=== PATIENT | male | born 1965 | race Caucasian/White ===

== ENCOUNTER 2024-11-18 16:20 | Inpatient (IN) | payer OTHER ==
[~2024-11-18] VITALS: Ht 165.1 cm; Wt 86.7 kg
[2024-11-18 17:46] LABS: BASOPHILS ABSOLUTE AUTO 0.03 K/mm3 (0.00-0.23); BASOPHILS PERCENT AUTO 0 % (0-2); EOSINOPHILS ABSOLUTE AUTO 0.09 K/mm3 (0.00-0.68); EOSINOPHILS PERCENT AUTO 1 % (0-6); Hematocrit 23.4 % (37.0-53.0); Hemoglobin 7.2 g/dL (13.5-17.5); IMMATURE GRAN ABSOLUTE AUTO 0.57 K/mm3 (0.00-0.10); IMMATURE GRAN PERCENT AUTO 4 % (0-1); LYMPHOCYTES ABSOLUTE AUTO 1.79 K/mm3 (0.84-5.20); LYMPHOCYTES PERCENT AUTO 14 % (21-46); MONOCYTES ABSOLUTE AUTO 0.64 K/mm3 (0.16-1.47); MONOCYTES PERCENT AUTO 5 % (4-13); Mean Corpuscular HGB Conc 30.8 g/dL (31.5-36.5); Mean Corpuscular Volume 83 fL (80-100); NEUTROPHILS ABSOLUTE AUTO 9.98 K/mm3 (1.96-9.15); NEUTROPHILS PERCENT AUTO 76 % (41-73); NRBC ABSOLUTE 0.00 K/mm3 (0.00-0.02); NRBC Auto 0.0 /100 WBC (0.0-0.2); Platelet Count 514 K/mm3 (150-400); RDW Coefficient Variation 15.8 % (11.7-14.2); RDW Standard Deviation 48.0 fL (35.1-46.3)
[2024-11-18] MEDS ORDERED: NS 1,000 ML IV SCH (17:50)
[2024-11-18 18:03] LABS: Source, Urine Clean Catch
[2024-11-18 18:07] LABS: Bilirubin, Urine Neg (Neg); Glucose Qualitative, Urine Neg (Neg); Ketones, Urine Neg (Neg); Leukocyte Esterase, Urine 3+ (Neg); Protein, Urine 2+ (Neg); Specific Gravity, Urine 1.010 (1.003-1.022); Urobilinogen, Urine NORM (Normal)
[2024-11-18 18:09] LABS: Color, Urine Yellow (P-Yellow)
[2024-11-18 18:13] LABS: White Blood Cells, Urine TNTC /hpf (0-5)
[2024-11-18 18:21] LABS: Magnesium, Blood 3.1 mg/dL (1.6-2.4)
[2024-11-18 18:28] LABS: Alanine Aminotransfer (ALT/SGP 54 U/L (12-78); Albumin, Blood 1.7 g/dL (3.4-5.0); Albumin/Globulin Ratio 0.2 (0.8-1.8); Anion Gap 13 mmol/L (3-11); Aspartate Aminotrans (AST/SGOT 60 U/L (12-37); Bilirubin, Total 0.2 mg/dL (0.1-1.0); Blood Urea Nitrogen 63 mg/dL (8-24); CO2, Blood 22 mmol/L (21-32); Calcium, Blood 9.2 mg/dL (8.5-10.1); Chloride, Blood 105 mmol/L (98-108); Creatinine, Blood 3.88 mg/dL (0.60-1.20); Globulin, Blood 6.8 g/dL (2.2-4.0); Glucose, Blood 142 mg/dL (70-99); Potassium, Blood 4.0 mmol/L (3.5-5.5); Sodium, Blood 136 mmol/L (136-145); Total Protein, Blood 8.5 g/dL (6.4-8.2)
[2024-11-18 18:41] LABS: Acetaminophen, Random <2.0 ug/mL (10.0-30.0)
[2024-11-18 18:50] LABS: Ethanol (Alcohol), Blood, Med 4 mg/dL; Salicylate <1.7 mg/dL (2.8-20.0)
[2024-11-18] MEDS ORDERED: CefTRIAXone Sodium 1,000 MG in NS 100 ML IV ONE (19:15)
[2024-11-18] MEDS ORDERED: Ondansetron HCl 2 MG / ML 2ML Vial IV PRN ×2 (20:35→22:25)
[2024-11-18 20:57] LABS: U Amphetamine Screen Not Detected; U Barbituate Screen Not Detected; U Benzodiazapine Screen Not Detected; U Buprenorphine Screen Not Detected; U Cannabinoids Screen Not Detected; U Cocaine Screen Not Detected; U Methadone Screen Not Detected; U Methamphetamine Screen Not Detected; U Opiates Screen Not Detected; U Oxycodone Screen Not Detected; U Phencyclidine Screen Not Detected
[2024-11-18] MEDS ORDERED: Lactobacil 2-S.Thermo-Bifido 1 1 Cap PO SCH (21:00)
[2024-11-18 21:53] LABS: Ferritin, Serum 1483 ng/mL (26-388); Thyroid Stimulating Hormone 1.490 uIU/mL (0.360-4.800); Total Iron Binding Capacity 171 ug/dL (250-450)
[2024-11-18] MEDS ORDERED: FentaNYL Citrate 50 MCG/ML 2 ML Injection ONE (21:58)
[2024-11-18] MEDS ORDERED: Dexamethasone Sod Phos 10 MG/ML 1ML VIAL ONE (22:10)
[2024-11-18] MEDS ORDERED: Rocuronium Bromide 10 MG/ML 5ML Injection IV ONE (22:10)
[2024-11-18] MEDS ORDERED: FentaNYL Citrate 50 MCG/ML 2 ML Injection IV PRN (22:20)
[2024-11-18] MEDS ORDERED: Sugammadex Sodium 200 MG/2ML SDV (100 MG/ML) ONE (22:23)
[2024-11-18] MEDS ORDERED: Ondansetron HCl 2 MG / ML 2ML Vial ONE (22:23)
[2024-11-18] MEDS ORDERED: HYDROmorphone HCl/Pf 1MG SYR IV PRN (22:25)
[2024-11-18 23:15] VITALS: BP 169/98
[2024-11-18 23:20] VITALS: BP 158/100
[2024-11-18 23:25] VITALS: BP 149/102
[2024-11-18 23:30] VITALS: BP 151/96
[2024-11-18 23:45] VITALS: BP 147/95
[2024-11-19] VITALS (9 sets, daily range): BP systolic 127–154; BP diastolic 76–95
[2024-11-19 00:42] LABS: BASOPHILS ABSOLUTE AUTO 0.06 K/mm3 (0.00-0.23); BASOPHILS PERCENT AUTO 0 % (0-2); EOSINOPHILS ABSOLUTE AUTO 0.07 K/mm3 (0.00-0.68); EOSINOPHILS PERCENT AUTO 1 % (0-6); Hematocrit 24.1 % (37.0-53.0); Hemoglobin 7.1 g/dL (13.5-17.5); IMMATURE GRAN ABSOLUTE AUTO 0.70 K/mm3 (0.00-0.10); IMMATURE GRAN PERCENT AUTO 5 % (0-1); LYMPHOCYTES ABSOLUTE AUTO 0.99 K/mm3 (0.84-5.20); LYMPHOCYTES PERCENT AUTO 6 % (21-46); MONOCYTES ABSOLUTE AUTO 0.35 K/mm3 (0.16-1.47); MONOCYTES PERCENT AUTO 2 % (4-13); Mean Corpuscular HGB Conc 29.5 g/dL (31.5-36.5); NEUTROPHILS ABSOLUTE AUTO 13.21 K/mm3 (1.96-9.15); NEUTROPHILS PERCENT AUTO 86 % (41-73); NRBC ABSOLUTE 0.00 K/mm3 (0.00-0.02); NRBC Auto 0.0 /100 WBC (0.0-0.2); Platelet Count 465 K/mm3 (150-400); RDW Coefficient Variation 16.0 % (11.7-14.2); RDW Standard Deviation 51.5 fL (35.1-46.3)
[2024-11-19 00:43] LABS: Mean Corpuscular Volume 88 fL (80-100)
[2024-11-19 00:58] LABS: Prothrombin Time Results 13.9 Sec (9.7-11.5)
[2024-11-19 01:05] LABS: Alanine Aminotransfer (ALT/SGP 58.0 U/L (12-78); Albumin, Blood 1.5 g/dL (3.4-5.0); Albumin/Globulin Ratio 0.2 (0.8-1.8); Anion Gap 15.0 mmol/L (3-11); Aspartate Aminotrans (AST/SGOT 70.0 U/L (12-37); Bilirubin, Total 0.3 mg/dL (0.1-1.0); Blood Urea Nitrogen 62.0 mg/dL (8-24); CO2, Blood 19.0 mmol/L (21-32); Calcium, Blood 8.4 mg/dL (8.5-10.1); Chloride, Blood 109.0 mmol/L (98-108); Creatinine, Blood 3.84 mg/dL (0.60-1.20); Globulin, Blood 6.4 g/dL (2.2-4.0); Glucose, Blood 119.0 mg/dL (70-99); Magnesium, Blood 2.8 mg/dL (1.6-2.4); Potassium, Blood 4.6 mmol/L (3.5-5.5); Sodium, Blood 138.0 mmol/L (136-145); Total Protein, Blood 7.9 g/dL (6.4-8.2)
[2024-11-19] MEDS ORDERED: MULVITA PO (01:10)
[2024-11-19] MEDS ORDERED: ASCORBIC ACID500 MG (01:11)
--- NOTE | 2024-11-19 02:32 | NUR ---
RN NOTIFICATION TO CONSULT TO DR RUKHSANA WORTHY PLACED CALL TO IR ANSWERING SERVICE AT [phone] FOR IR INTERVENTION FOR BILATERAL PERCUTANEOUS NEPH TUBES IN AM. ANSWERING SERVICE RECEIVED MESSAGE.
--- NOTE | 2024-11-19 07:35 | NUR ---
END OF SHIFT REPORT: PT ADMITTED FROM CYSTOSCOPY TO UNIT. IVF STARTED AT 150 CC HR, BASKETBALL COACH PLACED AND PT ADMISSION COMPLETED. PLAN OF CARE DISCUSSED TO CONTINUE NPO STATUS AND AN IR CONSULT CALLED TO ANSWERING SERVICE FOR DR RUKHSANA WORTHY TO PLACE BILATERAL NEPH TUBES IN AM. IV ABX TO CONTINUE TO BE GIVEN Q 24 HOURS. PT DENIES PAIN, HAS FREQ URINATIONS AND MALE EXTERNAL CATHETER PLACED SO PT COULD GET REST. VSS. PT ON ROOM AIR AND MAINTAINING SATS. HEART RATE ST TO NSR OVERNIGHT. PLAN OF CARE PENDING BIOSPY RESULTS OF BLADDER SPECIMEN. REPEAT LACTATE 0.7 FROM 2.1 ON ADMISSION.
[2024-11-19 09:03] LABS: Hematocrit 24.4 % (37.0-53.0); Hemoglobin 7.4 g/dL (13.5-17.5); Mean Corpuscular HGB Conc 30.3 g/dL (31.5-36.5); Mean Corpuscular Volume 85 fL (80-100); NRBC ABSOLUTE 0.00 K/mm3 (0.00-0.02); NRBC Auto 0.0 /100 WBC (0.0-0.2); Platelet Count 549 K/mm3 (150-400); RDW Coefficient Variation 15.8 % (11.7-14.2); RDW Standard Deviation 48.6 fL (35.1-46.3)
[2024-11-19 09:19] LABS: Anion Gap 14.0 mmol/L (3-11); Blood Urea Nitrogen 66.0 mg/dL (8-24); CO2, Blood 21.0 mmol/L (21-32); Calcium, Blood 8.7 mg/dL (8.5-10.1); Chloride, Blood 110.0 mmol/L (98-108); Creatinine, Blood 3.89 mg/dL (0.60-1.20); Glucose, Blood 148.0 mg/dL (70-99); Potassium, Blood 4.7 mmol/L (3.5-5.5); Sodium, Blood 140.0 mmol/L (136-145)
[2024-11-19 09:21] LABS: BAND PERCENT MAN 1 % (0-8); BASOPHILS ABSOLUTE MAN 0.00 K/mm3 (0.00-0.23); BASOPHILS PERCENT MAN 0 % (0-2); EOSINOPHILS ABSOLUTE MAN 0.00 K/mm3 (0.00-0.68); EOSINOPHILS PERCENT MAN 0 % (0-6); LYMPHOCYTES ABSOLUTE MAN 1.01 K/mm3 (0.84-5.20); LYMPHOCYTES PERCENT MAN 7 % (21-46); METAMYELOCYTE ABSOLUTE MAN 0.43 K/mm3 (0.00-0.00); METAMYELOCYTE PERCENT MAN 3 % (0-0); MONOCYTES ABSOLUTE MAN 0.14 K/mm3 (0.16-1.47); MONOCYTES PERCENT MAN 1 % (4-13); MYELOCYTE ABSOLUTE MAN 0.29 K/mm3 (0.00-0.00); MYELOCYTE PERCENT MAN 2 % (0-0); NEUTROPHILS ABSOLUTE MAN 12.63 K/mm3 (1.96-9.15); SEG NEUTROPHILS PERCENT MAN 86 % (41-73)
[2024-11-19 16:03] LABS: Anion Gap 14.0 mmol/L (3-11); Blood Urea Nitrogen 62.0 mg/dL (8-24); CO2, Blood 21.0 mmol/L (21-32); Calcium, Blood 8.4 mg/dL (8.5-10.1); Chloride, Blood 105.0 mmol/L (98-108); Creatinine, Blood 3.47 mg/dL (0.60-1.20); Glucose, Blood 162.0 mg/dL (70-99); Potassium, Blood 4.1 mmol/L (3.5-5.5); Sodium, Blood 136.0 mmol/L (136-145)
--- NOTE | 2024-11-19 17:27 | NUR ---
PT SUMMARY: PT A/O X4, ABLE TO MAKE NEEDS KNOWN. PT BP STABLE, HR NSR 80-100s. PT ON ROOM AIR, SATS >95%. PT DENIES SOB. PT ABLE TO VOID USING WHICKING SYSTEM DUE TO FREQUENCY. NO BM TODAY. PT ABLE TO TURN SELF IN BED. PT SBA UP TO CHAIR TODAY. PT LYING IN BED, LOWEST POSITION, CALL WITHIN REACH.
[2024-11-19] MEDS ORDERED: CefTRIAXone Sodium 1,000 MG in NS 100 ML IV SCH (20:00)
[2024-11-20] VITALS (14 sets, daily range): BP systolic 128–154; BP diastolic 81–97
[2024-11-20 04:40] LABS: BASOPHILS ABSOLUTE AUTO 0.03 K/mm3 (0.00-0.23); BASOPHILS PERCENT AUTO 0 % (0-2); EOSINOPHILS ABSOLUTE AUTO 0.02 K/mm3 (0.00-0.68); EOSINOPHILS PERCENT AUTO 0 % (0-6); Hematocrit 22.3 % (37.0-53.0); Hemoglobin 6.8 g/dL (13.5-17.5); IMMATURE GRAN ABSOLUTE AUTO 0.96 K/mm3 (0.00-0.10); IMMATURE GRAN PERCENT AUTO 5 % (0-1); LYMPHOCYTES ABSOLUTE AUTO 1.57 K/mm3 (0.84-5.20); LYMPHOCYTES PERCENT AUTO 9 % (21-46); MONOCYTES ABSOLUTE AUTO 0.59 K/mm3 (0.16-1.47); MONOCYTES PERCENT AUTO 3 % (4-13); Mean Corpuscular HGB Conc 30.5 g/dL (31.5-36.5); Mean Corpuscular Volume 83 fL (80-100); NEUTROPHILS ABSOLUTE AUTO 14.51 K/mm3 (1.96-9.15); NEUTROPHILS PERCENT AUTO 82 % (41-73); NRBC ABSOLUTE 0.00 K/mm3 (0.00-0.02); NRBC Auto 0.0 /100 WBC (0.0-0.2); Platelet Count 480 K/mm3 (150-400); RDW Coefficient Variation 16.0 % (11.7-14.2); RDW Standard Deviation 48.4 fL (35.1-46.3)
[2024-11-20 05:03] LABS: Anion Gap 12.0 mmol/L (3-11); Blood Urea Nitrogen 63.0 mg/dL (8-24); CO2, Blood 22.0 mmol/L (21-32); Calcium, Blood 8.1 mg/dL (8.5-10.1); Chloride, Blood 106.0 mmol/L (98-108); Creatinine, Blood 2.97 mg/dL (0.60-1.20); Glucose, Blood 119.0 mg/dL (70-99); Potassium, Blood 4.3 mmol/L (3.5-5.5); Sodium, Blood 136.0 mmol/L (136-145)
--- NOTE | 2024-11-20 06:57 | NUR ---
SHIFT SUMMARY: PT A&OX4 CALM AND COOPERATIVE. VSS ON 1L NC. BEDREST. RAPID RESPONSE CALLED AT 2220 D/T AFIB RVR 160S-220S AND PT C/O CHEST AND LEFT NECK PAIN 10/23. SEE PREVIOUS NOTES. AMIO BOLUS AND DRIP GIVEN PER DR. PERRY. CONVERTED NSR 90S AT 0200. PT BEGAN HAVING SOFT BPS WITH MAP BELOW 65 AND RESIDENT NOTIFIED. RESIDENT ORDERED TO STOP AMIO DRIP. AMIO DRIP STOPPED AT 0500. CONTINUES TO HAVE SOFT BPS BUT MAP >65. RECEIVING IV ABX. RESIDENT NOTIFIED OF WBC INCREASE AND ORDERED LACTIC LAB. TOLERATING HEART HEALTHY DIET. BED IS LOW AND LOCKED AND CALL LIGHT WITHIN REACH. CONTINUE WITH CURRENT PLAN OF CARE.
[2024-11-20] MEDS ORDERED: NS 500 ML IV SCH (07:45)
[2024-11-20] MEDS ORDERED: Vancomycin (Pharmacy Consult) IV SCH (09:00)
[2024-11-20 12:35] LABS: Hematocrit 26.3 % (37.0-53.0); Hemoglobin 8.1 g/dL (13.5-17.5); Mean Corpuscular HGB Conc 30.8 g/dL (31.5-36.5); Mean Corpuscular Volume 82 fL (80-100); NRBC ABSOLUTE 0.00 K/mm3 (0.00-0.02); NRBC Auto 0.0 /100 WBC (0.0-0.2); Platelet Count 453 K/mm3 (150-400); RDW Coefficient Variation 16.1 % (11.7-14.2); RDW Standard Deviation 48.4 fL (35.1-46.3)
[2024-11-20 12:59] LABS: BAND PERCENT MAN 4 % (0-8); BASOPHILS ABSOLUTE MAN 0.00 K/mm3 (0.00-0.23); BASOPHILS PERCENT MAN 0 % (0-2); EOSINOPHILS ABSOLUTE MAN 0.00 K/mm3 (0.00-0.68); EOSINOPHILS PERCENT MAN 0 % (0-6); LYMPHOCYTES ABSOLUTE MAN 1.52 K/mm3 (0.84-5.20); LYMPHOCYTES PERCENT MAN 10 % (21-46); METAMYELOCYTE ABSOLUTE MAN 0.61 K/mm3 (0.00-0.00); METAMYELOCYTE PERCENT MAN 4 % (0-0); MONOCYTES ABSOLUTE MAN 0.30 K/mm3 (0.16-1.47); MONOCYTES PERCENT MAN 2 % (4-13); MYELOCYTE ABSOLUTE MAN 0.30 K/mm3 (0.00-0.00); MYELOCYTE PERCENT MAN 2 % (0-0); NEUTROPHILS ABSOLUTE MAN 12.52 K/mm3 (1.96-9.15); SEG NEUTROPHILS PERCENT MAN 78 % (41-73)
--- NOTE | 2024-11-20 17:17 | NUR ---
SHIFT SUMMARY: PT A/O X4, ABLE TO MAKE NEEDS KNOWN. PT STRENGTH EQUAL BILATERALLY. PT ON 2L O2 NC, SATS >95%. PT LUNG SOUNDS CLEAR THROUGHOUT. PT DENIES SOB. PT REMAINED NSR 80s THIS SHIFT. PT REPORTS NO CHEST PAIN/PRESSURE. PT ABLE TO VOID USING WHICKING SYSTEM DUE TO URGENCY, NO BM TODAY. PT NPO AT 0000 FOR PROCEDURE 11/21. PT RECIEVED 1 UNIT OF PRBC, HGB >7.0 TODAY. PT LYING IN BED, CALL WITHIN REACH. WILL REPORT TO ONCOMING RN.
[2024-11-21] VITALS (8 sets, daily range): BP systolic 130–159; BP diastolic 83–102
[2024-11-21 04:07] LABS: Hematocrit 24.7 % (37.0-53.0); Hemoglobin 7.6 g/dL (13.5-17.5); Mean Corpuscular HGB Conc 30.8 g/dL (31.5-36.5); Mean Corpuscular Volume 84 fL (80-100); NRBC ABSOLUTE 0.00 K/mm3 (0.00-0.02); NRBC Auto 0.0 /100 WBC (0.0-0.2); Platelet Count 489 K/mm3 (150-400); RDW Coefficient Variation 16.7 % (11.7-14.2); RDW Standard Deviation 51.4 fL (35.1-46.3)
[2024-11-21 04:26] LABS: Alanine Aminotransfer (ALT/SGP 68 U/L (12-78); Albumin, Blood 1.5 g/dL (3.4-5.0); Albumin/Globulin Ratio 0.3 (0.8-1.8); Anion Gap 11 mmol/L (3-11); Aspartate Aminotrans (AST/SGOT 72 U/L (12-37); Bilirubin, Total 0.3 mg/dL (0.1-1.0); Blood Urea Nitrogen 58 mg/dL (8-24); CO2, Blood 23 mmol/L (21-32); Calcium, Blood 8.4 mg/dL (8.5-10.1); Chloride, Blood 112 mmol/L (98-108); Creatinine, Blood 2.79 mg/dL (0.60-1.20); Globulin, Blood 5.4 g/dL (2.2-4.0); Glucose, Blood 96 mg/dL (70-99); Potassium, Blood 4.3 mmol/L (3.5-5.5); Sodium, Blood 142 mmol/L (136-145); Total Protein, Blood 6.9 g/dL (6.4-8.2); Vancomycin, Random 27.6 ug/mL
[2024-11-21 04:54] LABS: BAND PERCENT MAN 4 % (0-8); BASOPHILS ABSOLUTE MAN 0.00 K/mm3 (0.00-0.23); BASOPHILS PERCENT MAN 0 % (0-2); EOSINOPHILS ABSOLUTE MAN 0.00 K/mm3 (0.00-0.68); EOSINOPHILS PERCENT MAN 0 % (0-6); LYMPHOCYTES ABSOLUTE MAN 1.51 K/mm3 (0.84-5.20); LYMPHOCYTES PERCENT MAN 11 % (21-46); METAMYELOCYTE ABSOLUTE MAN 0.13 K/mm3 (0.00-0.00); METAMYELOCYTE PERCENT MAN 1 % (0-0); MONOCYTES ABSOLUTE MAN 0.96 K/mm3 (0.16-1.47); MONOCYTES PERCENT MAN 7 % (4-13); MYELOCYTE ABSOLUTE MAN 0.13 K/mm3 (0.00-0.00); MYELOCYTE PERCENT MAN 1 % (0-0); NEUTROPHILS ABSOLUTE MAN 11.00 K/mm3 (1.96-9.15); SEG NEUTROPHILS PERCENT MAN 76 % (41-73)
[2024-11-21] MEDS ORDERED: Vancomycin (Pharmacy Consult) IV SCH (08:15)
[2024-11-21] MEDS ORDERED: NS 500 ML IV ONE (12:27)
[2024-11-21] MEDS ORDERED: Midazolam HCl 1MG / ML 2ML Vial ONE (13:10)
[2024-11-21] MEDS ORDERED: FentaNYL Citrate 50 MCG/ML 2 ML Injection ONE (13:10)
[2024-11-21] MEDS ORDERED: NS 1,000 ML IV ONE (13:10)
--- NOTE | 2024-11-21 18:40 | NUR ---
SHIFT SUMMARY: A/OX4, FLAT AND WITHDRAWN AFFECT, PLEASANT AND COOPERATIVE WITH CARE, USES CALL LIGHT APPROPRIATELY. TRANSITIONED FROM PUREWICK TO URINAL AT BEDSIDE, BILATERAL NEPHROTUBES PLACED, DRESSINGS C/D/I, LARGE OUTPUT FROM LEFT DRAIN, SEROSANGUINEOUS IN COLOR, ON 11/18 URINE WAS POSITIVE FOR GRAM POSITIVE COCCI IN CLUSTERS, UA COLLECTED THIS SHIFT, NOT RESULTED AT THIS TIME. PT STATES THAT HE IS NOT IN ANY PAIN, DENIES N/V/D. TRANSFERS A SBA W/FWW.
[2024-11-22 00:17] VITALS: BP 152/92
[2024-11-22 03:28] LABS: Hematocrit 26.5 % (37.0-53.0); Hemoglobin 8.0 g/dL (13.5-17.5); Mean Corpuscular HGB Conc 30.2 g/dL (31.5-36.5); Mean Corpuscular Volume 85 fL (80-100); NRBC ABSOLUTE 0.00 K/mm3 (0.00-0.02); NRBC Auto 0.0 /100 WBC (0.0-0.2); Platelet Count 415 K/mm3 (150-400); RDW Coefficient Variation 17.0 % (11.7-14.2); RDW Standard Deviation 51.5 fL (35.1-46.3)
[2024-11-22 03:55] LABS: BAND PERCENT MAN 8 % (0-8); BASOPHILS ABSOLUTE MAN 0.00 K/mm3 (0.00-0.23); BASOPHILS PERCENT MAN 0 % (0-2); EOSINOPHILS ABSOLUTE MAN 0.00 K/mm3 (0.00-0.68); EOSINOPHILS PERCENT MAN 0 % (0-6); LYMPHOCYTES ABSOLUTE MAN 1.43 K/mm3 (0.84-5.20); LYMPHOCYTES PERCENT MAN 10 % (21-46); METAMYELOCYTE ABSOLUTE MAN 0.14 K/mm3 (0.00-0.00); METAMYELOCYTE PERCENT MAN 1 % (0-0); MONOCYTES ABSOLUTE MAN 0.00 K/mm3 (0.16-1.47); MONOCYTES PERCENT MAN 0 % (4-13); MYELOCYTE ABSOLUTE MAN 0.14 K/mm3 (0.00-0.00); MYELOCYTE PERCENT MAN 1 % (0-0); NEUTROPHILS ABSOLUTE MAN 12.64 K/mm3 (1.96-9.15); SEG NEUTROPHILS PERCENT MAN 80 % (41-73)
[2024-11-22 04:00] LABS: Albumin, Blood 1.5 g/dL (3.4-5.0); Anion Gap 11 mmol/L (3-11); Blood Urea Nitrogen 53 mg/dL (8-24); CO2, Blood 23 mmol/L (21-32); Calcium, Blood 8.6 mg/dL (8.5-10.1); Chloride, Blood 115 mmol/L (98-108); Creatinine, Blood 2.70 mg/dL (0.60-1.20); Glucose, Blood 117 mg/dL (70-99); Phosphorus, Blood 5.1 mg/dL (2.5-4.9); Potassium, Blood 4.0 mmol/L (3.5-5.5); Sodium, Blood 145 mmol/L (136-145); Vancomycin, Random 16.9 ug/mL
[2024-11-22 04:20] VITALS: BP 113/82
[2024-11-22 08:01] VITALS: BP 134/90
[2024-11-22 09:19] LABS: Source, Urine Clean Catch
[2024-11-22 09:26] LABS: Bilirubin, Urine Neg (Neg); Glucose Qualitative, Urine Neg (Neg); Ketones, Urine Neg (Neg); Leukocyte Esterase, Urine 3+ (Neg); Protein, Urine 3+ (Neg); Specific Gravity, Urine 1.010 (1.003-1.022); Urobilinogen, Urine NORM (Normal)
[2024-11-22 09:38] LABS: Color, Urine Pale Yellow (P-Yellow)
[2024-11-22 09:40] LABS: White Blood Cells, Urine 25-50 /hpf (0-5)
--- NOTE | 2024-11-22 09:59 | NUR ---
am note this rn assumed care at 0700. vital signs stable. tele sinus tachycardia in the 100s. spo2 >90% on 1l nc. patient is alert and oriented x4. neuro is intact. perrla. patient is able to make needs known and uses call light appropriately. patient denies pain, chest pain/pressure or shortness of breath. patient has bilateral nephrostomy tubes both draining to gravity and yellow output. patient was able to void and small amount of urine. see shift assessment for further detials. md Guevara in to see patient at 0900 and discussed plan of care with patient. Md Osorio in to see patient at 0945 and discussed plan of care and made patient medical status with tele.
[2024-11-22 10:59] VITALS: BP 144/99
[2024-11-22 15:02] VITALS: BP 148/92
--- NOTE | 2024-11-22 17:45 | NUR ---
shift summary patient vital signs remain stable. spo2 >90% on 1l nc. patient has sat in the chair majority of the afternoon and had bed bath and linen change. patient requires motivation to participate in adls, but can do so independtly. patient right nephrostomy tube with no output this shift, but left nephrostomy with output. see intake and output for total of output this shift. no acute changes this shift. plan remains up to date
[2024-11-22 20:15] VITALS: BP 138/96
--- NOTE | 2024-11-22 20:55 | NUR ---
REPORT GIVEN TO CODI HAWKINS ON MEDICAL FLOOR. PT TO BE MOVED TO ROOM 308. ALL BELONGINGS AND PAPERWORK TO ACCOMPANY PATIENT TO NEW ROOM.
[2024-11-22] MEDS ORDERED: Heparin Sodium,Porcine 5,000 UNIT/0.5 ML SDV SC SCH (21:00)
[2024-11-23 00:17] VITALS: BP 140/92
--- NOTE | 2024-11-23 03:18 | NUR ---
SHIFT SUMMARY/TRANSFER NOTE: REPORT RECEIVED FROM LAP HAND TOOL RUTH. PT ARRIVED TO THE MEDICAL FLOOR IN A W/C AND WAS ASSITED BY 1-PERSON TO THE RECLINER. PT BROUGHT ALL HIS BELONINGS WITH HIM. EDUCATED PILLAR MAN LIGHT AND FALL PRECAUTIONS. PT CURRENTLY RESTING IN RECLINER, DECLINES NEED FOR LAYING IN BED FOR THE NIGHT. PT DENIES PAIN AND DISCOMFORT. BILATERAL NEPHROSTOMY TUBES DRAINING W/O COMPLICATIONS. PT IS A/O X4, FLAT AFFECT, COOPERATIVE WITH CARE. PT DENIES PAIN AND DISCOMFORT. NO ACUTE EVENTS DURING THIS SHIFT. RECLINER LOCKED, BED AT THE LOWEST POSITION, CALL LIGHT W/I REACH. CONTINENT/INCONTINENT, URINAL BY THE BEDSIDE. PULLUPS IN PLACE.
[2024-11-23 04:19] VITALS: BP 136/88
[2024-11-23 05:28] LABS: Hematocrit 23.9 % (37.0-53.0); Hemoglobin 7.1 g/dL (13.5-17.5); Mean Corpuscular HGB Conc 29.7 g/dL (31.5-36.5); Mean Corpuscular Volume 84 fL (80-100); NRBC ABSOLUTE 0.00 K/mm3 (0.00-0.02); NRBC Auto 0.0 /100 WBC (0.0-0.2); Platelet Count 366 K/mm3 (150-400); RDW Coefficient Variation 16.6 % (11.7-14.2); RDW Standard Deviation 51.1 fL (35.1-46.3)
[2024-11-23 05:53] LABS: BAND PERCENT MAN 3 % (0-8); BASOPHILS ABSOLUTE MAN 0.00 K/mm3 (0.00-0.23); BASOPHILS PERCENT MAN 0 % (0-2); EOSINOPHILS ABSOLUTE MAN 0.42 K/mm3 (0.00-0.68); EOSINOPHILS PERCENT MAN 3 % (0-6); LYMPHOCYTES ABSOLUTE MAN 2.25 K/mm3 (0.84-5.20); LYMPHOCYTES PERCENT MAN 16 % (21-46); METAMYELOCYTE ABSOLUTE MAN 0.28 K/mm3 (0.00-0.00); METAMYELOCYTE PERCENT MAN 2 % (0-0); MONOCYTES ABSOLUTE MAN 0.56 K/mm3 (0.16-1.47); MONOCYTES PERCENT MAN 4 % (4-13); NEUTROPHILS ABSOLUTE MAN 10.56 K/mm3 (1.96-9.15); SEG NEUTROPHILS PERCENT MAN 72 % (41-73)
[2024-11-23 05:56] LABS: Alanine Aminotransfer (ALT/SGP 110 U/L (12-78); Albumin, Blood 1.4 g/dL (3.4-5.0); Albumin/Globulin Ratio 0.2 (0.8-1.8); Anion Gap 8 mmol/L (3-11); Aspartate Aminotrans (AST/SGOT 130 U/L (12-37); Bilirubin, Total 0.4 mg/dL (0.1-1.0); Blood Urea Nitrogen 40 mg/dL (8-24); CO2, Blood 25 mmol/L (21-32); Calcium, Blood 8.3 mg/dL (8.5-10.1); Chloride, Blood 107 mmol/L (98-108); Creatinine, Blood 2.00 mg/dL (0.60-1.20); Globulin, Blood 5.8 g/dL (2.2-4.0); Glucose, Blood 97 mg/dL (70-99); Potassium, Blood 3.4 mmol/L (3.5-5.5); Sodium, Blood 137 mmol/L (136-145); Total Protein, Blood 7.2 g/dL (6.4-8.2); Vancomycin, Random 18.8 ug/mL
[2024-11-23 07:50] VITALS: BP 136/93
[2024-11-23 10:34] LABS: Hematocrit 25.0 % (37.0-53.0); Hemoglobin 7.6 g/dL (13.5-17.5)
[2024-11-23 16:03] VITALS: BP 129/89
--- NOTE | 2024-11-23 16:45 | NUR ---
CALL FROM FAMILY SISTER, SHYAM MAGAÑA, CALLED TO INQUIRE UPDATES REGARDING PATIENT STATUS. ADVISED NO UPDATES ARE AVAILABLE. SISTER WOULD LIKE UPDATE CALLS TO HER FROM PHYSICIAN/SURGEON/NURSE. WENT TO CHECK WITH PATIENT IF THIS WAS OKAY WITH HIM, HE IS CURRENTLY SLEEPING. MOTHER, RC, IS AT THE BEDSIDE. WILL CONFIRM IF UPDATE CALLS TO SISTER IS OKAY WITH HIM AT WHEN HE IS UP FOR DINNER.
--- NOTE | 2024-11-23 16:58 | NUR ---
SHIFT SUMMARY PATIENT A&OX4, PLEASANT. UP IN CHAIR MOST OF DAY. PATIENT STATED HE HAS A DECREASED APPETITE. PATIENT IS MAKING CLEAR AND LIGHT YELLOW URINE FROM LEFT NEPHROSTOMY, PINKISH COLORED FROM THE LEFT. CONTINENT AND A STAND BY ASSIST WITH FWW. OT CAME TO SEE PATIENT TODAY, HE WAS ABLE TO AMBULATE IN THE [place] WITH OT AND FWW W/O O2 AND STAYED ABOVE 90%. CURRENTLY SLEEPING IN BED WITH BED IN LOWEST POSITION, CALL LIGHT IS WITHIN REACH. HIS MOTHER, RC, IS AT THE BEDSIDE.
[2024-11-23 19:25] VITALS: BP 149/97
--- NOTE | 2024-11-24 03:31 | NUR ---
SHIFT SUMMARY NO ACUTE EVENTS DURING THIS SHIFT. RIGHT NEPHROSTOMY TUBE OUTPUT 300MLS YELLOW IN COLOR, LEFT NEPHROSTOMY OUTPUT 700MLS, PINK IN COLOR. AT HS PT'S MOTHER BY THE BEDSIDE. VSS. PT DENIES PAIN AND DISCOMFORT. PT USING URINAL TO VOID, PULLUPS IN PLACE. FLAT AFFECT, COOPERATIVE WITH CARE. BED AT THE LOWEST POSITION, CALL LIGHT W/I REACH. PT IS A/O X4, NEEDS ENCOURAGMENT WITH REPOSITIONING AND ADL'S.
[2024-11-24 04:09] VITALS: BP 128/82
[2024-11-24 05:35] LABS: Hematocrit 24.9 % (37.0-53.0); Hemoglobin 7.8 g/dL (13.5-17.5); Mean Corpuscular HGB Conc 31.3 g/dL (31.5-36.5); Mean Corpuscular Volume 82 fL (80-100); NRBC ABSOLUTE 0.00 K/mm3 (0.00-0.02); NRBC Auto 0.0 /100 WBC (0.0-0.2); Platelet Count 398 K/mm3 (150-400); RDW Coefficient Variation 16.6 % (11.7-14.2); RDW Standard Deviation 49.1 fL (35.1-46.3)
[2024-11-24 06:06] LABS: Alanine Aminotransfer (ALT/SGP 214 U/L (12-78); Albumin, Blood 1.5 g/dL (3.4-5.0); Albumin/Globulin Ratio 0.3 (0.8-1.8); Anion Gap 10 mmol/L (3-11); Aspartate Aminotrans (AST/SGOT 213 U/L (12-37); Bilirubin, Total 0.4 mg/dL (0.1-1.0); Blood Urea Nitrogen 36 mg/dL (8-24); CO2, Blood 23 mmol/L (21-32); Calcium, Blood 8.2 mg/dL (8.5-10.1); Chloride, Blood 104 mmol/L (98-108); Creatinine, Blood 1.72 mg/dL (0.60-1.20); Globulin, Blood 5.9 g/dL (2.2-4.0); Glucose, Blood 101 mg/dL (70-99); Potassium, Blood 3.1 mmol/L (3.5-5.5); Sodium, Blood 134 mmol/L (136-145); Total Protein, Blood 7.4 g/dL (6.4-8.2); Vancomycin, Random 21.2 ug/mL
[2024-11-24 06:21] LABS: BASOPHILS ABSOLUTE MAN 0.00 K/mm3 (0.00-0.23); BASOPHILS PERCENT MAN 0 % (0-2); EOSINOPHILS ABSOLUTE MAN 0.40 K/mm3 (0.00-0.68); EOSINOPHILS PERCENT MAN 3 % (0-6); LYMPHOCYTES ABSOLUTE MAN 1.89 K/mm3 (0.84-5.20); LYMPHOCYTES PERCENT MAN 14 % (21-46); METAMYELOCYTE ABSOLUTE MAN 0.13 K/mm3 (0.00-0.00); METAMYELOCYTE PERCENT MAN 1 % (0-0); MONOCYTES ABSOLUTE MAN 0.13 K/mm3 (0.16-1.47); MONOCYTES PERCENT MAN 1 % (4-13); MYELOCYTE ABSOLUTE MAN 0.40 K/mm3 (0.00-0.00); MYELOCYTE PERCENT MAN 3 % (0-0); NEUTROPHILS ABSOLUTE MAN 10.41 K/mm3 (1.96-9.15); PLASMA CELL ABSOLUTE MAN 0.13 K/mm3 (0.00-0.00); PLASMA CELLS PERCENT MAN 1 % (0-0); SEG NEUTROPHILS PERCENT MAN 77 % (41-73)
[2024-11-24 07:48] VITALS: BP 129/94
[2024-11-24 15:48] VITALS: BP 142/96
[2024-11-24 16:41] LABS: Vancomycin, Random 15.3 ug/mL
--- NOTE | 2024-11-24 18:45 | NUR ---
END OF SHIFT SUMMARY: A&Ox4. PLEASANT AND COOPERATIVE WITH CARE. CALLS APPROPRIATELY AND IS ABLE TO ADVOCATE NEEDS EFFECTIVELY. VSS. BREATHING EVEN AND UNLABORED c RA. CONTINENT OF BOWEL. BILATERAL NEPH TUBES PATENT AND DRAINING TO GRAVITY. DRESSING C/D/I. TOLERATING REGULAR DIET BUT HAS POOR APPETITE. AMBULATES 1PA c FWW. MEDS WHOLE c FLUIDS. FLAT AFFECT AND SIGHS WHEN ASKED TO PARTICIPATE IN CARE. PLAN TO DC HOME c HOME HEALTH ONCE Bx RESULT. BED IN LOWEST POSITION, CALL LIGHT WITHIN REACH, ALL NEEDS MET. REPORT TO ONCOMING NURSE.
[2024-11-24 19:24] VITALS: BP 146/101
[2024-11-25 04:35] VITALS: BP 143/97
[2024-11-25 05:38] LABS: Hematocrit 25.9 % (37.0-53.0); Hemoglobin 7.9 g/dL (13.5-17.5); Mean Corpuscular HGB Conc 30.5 g/dL (31.5-36.5); Mean Corpuscular Volume 84 fL (80-100); NRBC ABSOLUTE 0.00 K/mm3 (0.00-0.02); NRBC Auto 0.0 /100 WBC (0.0-0.2); Platelet Count 418 K/mm3 (150-400); RDW Coefficient Variation 16.4 % (11.7-14.2); RDW Standard Deviation 49.7 fL (35.1-46.3)
--- NOTE | 2024-11-25 05:49 | NUR ---
Shift Summary Bilateral nephrostomy tubes intact, no s/s of infection. Output from R>L. No c/o of pain. Pt awake for most of the night, up in chair. AOx4, 1 assist w FWW.
[2024-11-25 06:11] LABS: BAND PERCENT MAN 3 % (0-8); BASOPHILS ABSOLUTE MAN 0.24 K/mm3 (0.00-0.23); BASOPHILS PERCENT MAN 2 % (0-2); EOSINOPHILS ABSOLUTE MAN 0.48 K/mm3 (0.00-0.68); EOSINOPHILS PERCENT MAN 4 % (0-6); LYMPHOCYTES ABSOLUTE MAN 1.44 K/mm3 (0.84-5.20); LYMPHOCYTES PERCENT MAN 12 % (21-46); METAMYELOCYTE ABSOLUTE MAN 0.60 K/mm3 (0.00-0.00); METAMYELOCYTE PERCENT MAN 5 % (0-0); MONOCYTES ABSOLUTE MAN 0.24 K/mm3 (0.16-1.47); MONOCYTES PERCENT MAN 2 % (4-13); MYELOCYTE ABSOLUTE MAN 0.36 K/mm3 (0.00-0.00); MYELOCYTE PERCENT MAN 3 % (0-0); NEUTROPHILS ABSOLUTE MAN 8.66 K/mm3 (1.96-9.15); SEG NEUTROPHILS PERCENT MAN 69 % (41-73)
[2024-11-25 06:24] LABS: Alanine Aminotransfer (ALT/SGP 161.0 U/L (12-78); Albumin, Blood 1.5 g/dL (3.4-5.0); Albumin/Globulin Ratio 0.2 (0.8-1.8); Anion Gap 12.0 mmol/L (3-11); Aspartate Aminotrans (AST/SGOT 104.0 U/L (12-37); Bilirubin, Total 0.5 mg/dL (0.1-1.0); Blood Urea Nitrogen 24.0 mg/dL (8-24); CO2, Blood 23.0 mmol/L (21-32); Calcium, Blood 8.5 mg/dL (8.5-10.1); Chloride, Blood 103.0 mmol/L (98-108); Creatinine, Blood 1.27 mg/dL (0.60-1.20); Globulin, Blood 6.1 g/dL (2.2-4.0); Glucose, Blood 94.0 mg/dL (70-99); Potassium, Blood 2.8 mmol/L (3.5-5.5); Sodium, Blood 135.0 mmol/L (136-145); Total Protein, Blood 7.6 g/dL (6.4-8.2)
[2024-11-25] MEDS ORDERED: NS 250 ML IV PRN (06:40)
[2024-11-25 07:21] VITALS: BP 127/81
[2024-11-25 15:13] VITALS: BP 131/92
[2024-11-25 17:51] LABS: Vancomycin, Random 16.2 ug/mL
--- NOTE | 2024-11-25 19:15 | NUR ---
SHIFT SUMMARY- PT REMAINS FAIRLY FLAT AND WITHDRAWN. UROLOGY CAME TO SEE HIM AND TOLD HIM HE HAS SOME FORM OF CANCER AND WILL NEED TO FOLLOW UP WITH ONCOLOGY. PATHOLOGY RESULTS CAME BACK AFTER THAT. CALLED DR BRITT HE IS AWARE AND WILL CONSULT ONCOLOGY TOMORROW. PT IS IN BED, BILATERAL NEPHROSTOMY TUBES ARE DRAINING TO GRAVITY. PINK URINE OUTPUT FROM THE LEFT SIDE, CLEAR YELLOW URINE ON THE RIGHT. DR AWARE OF THE PINK URINE ON THE LEFT. PT IN BED, CALL LIGHT IN REACH, NO S&S OF DISTRESS NOTED. BEDSIDE REPORT COMPLETED WITH NIGHT RN.
[2024-11-25 19:34] VITALS: BP 137/90
[2024-11-26] VITALS (11 sets, daily range): BP systolic 128–156; BP diastolic 81–98
--- NOTE | 2024-11-26 05:39 | NUR ---
PT A&O X4, VS WNL, BILAT NEPHROSTOMY WITH GOOD OUTPUT. CLEAR YELLOW URINE. , DENIES PAIN, ABLE TO UTILIZE CALL SYSTEM. PLAN TO SEE ONCOLOGY THIS DAY.
[2024-11-26 05:48] LABS: Hematocrit 25.7 % (37.0-53.0); Hemoglobin 7.9 g/dL (13.5-17.5); Mean Corpuscular HGB Conc 30.7 g/dL (31.5-36.5); Mean Corpuscular Volume 83 fL (80-100); NRBC ABSOLUTE 0.04 K/mm3 (0.00-0.02); NRBC Auto 0.3 /100 WBC (0.0-0.2); Platelet Count 412 K/mm3 (150-400); RDW Coefficient Variation 16.4 % (11.7-14.2); RDW Standard Deviation 49.1 fL (35.1-46.3)
[2024-11-26 06:09] LABS: Alanine Aminotransfer (ALT/SGP 133.0 U/L (12-78); Albumin, Blood 1.6 g/dL (3.4-5.0); Albumin/Globulin Ratio 0.3 (0.8-1.8); Anion Gap 9.0 mmol/L (3-11); Aspartate Aminotrans (AST/SGOT 99.0 U/L (12-37); Bilirubin, Total 0.3 mg/dL (0.1-1.0); Blood Urea Nitrogen 23.0 mg/dL (8-24); CO2, Blood 24.0 mmol/L (21-32); Calcium, Blood 8.4 mg/dL (8.5-10.1); Chloride, Blood 106.0 mmol/L (98-108); Creatinine, Blood 1.12 mg/dL (0.60-1.20); Globulin, Blood 5.7 g/dL (2.2-4.0); Glucose, Blood 102.0 mg/dL (70-99); Potassium, Blood 3.2 mmol/L (3.5-5.5); Sodium, Blood 136.0 mmol/L (136-145); Total Protein, Blood 7.3 g/dL (6.4-8.2)
[2024-11-26 06:51] LABS: BAND PERCENT MAN 5 % (0-8); BASOPHILS ABSOLUTE MAN 0.11 K/mm3 (0.00-0.23); BASOPHILS PERCENT MAN 1 % (0-2); EOSINOPHILS ABSOLUTE MAN 0.11 K/mm3 (0.00-0.68); EOSINOPHILS PERCENT MAN 1 % (0-6); LYMPHOCYTES ABSOLUTE MAN 0.69 K/mm3 (0.84-5.20); LYMPHOCYTES PERCENT MAN 6 % (21-46); METAMYELOCYTE ABSOLUTE MAN 0.23 K/mm3 (0.00-0.00); METAMYELOCYTE PERCENT MAN 2 % (0-0); MONOCYTES ABSOLUTE MAN 0.58 K/mm3 (0.16-1.47); MONOCYTES PERCENT MAN 5 % (4-13); MYELOCYTE ABSOLUTE MAN 0.23 K/mm3 (0.00-0.00); MYELOCYTE PERCENT MAN 2 % (0-0); NEUTROPHILS ABSOLUTE MAN 9.65 K/mm3 (1.96-9.15); SEG NEUTROPHILS PERCENT MAN 78 % (41-73)
[2024-11-26 13:51] LABS: Vancomycin, Trough 14.6 ug/mL (5.0-10.0)
[2024-11-26 14:46] LABS: Ferritin, Serum 1812.0 ng/mL (26-388); Total Iron Binding Capacity 191.0 ug/dL (250-450)
[2024-11-26 17:03] LABS: Anion Gap 14.0 mmol/L (3-11); Blood Urea Nitrogen 23.0 mg/dL (8-24); CO2, Blood 21.0 mmol/L (21-32); Calcium, Blood 8.3 mg/dL (8.5-10.1); Chloride, Blood 103.0 mmol/L (98-108); Creatinine, Blood 1.11 mg/dL (0.60-1.20); Glucose, Blood 138.0 mg/dL (70-99); Potassium, Blood 3.6 mmol/L (3.5-5.5); Sodium, Blood 134.0 mmol/L (136-145)
--- NOTE | 2024-11-26 18:31 | NUR ---
SHIFT SUMMARY NO ACUTE CHANGES, A/Ox4, ABLE TO MAKE NEEDS KNOWN, FLAT EFFECT. BILATERAL NEPHROSTOMIES PATENT AND DRAINING CLEAR YELLOW URINE. 2 UNITS OF PRBC ORDERED TO BE ADMINISTERED - FIRST UNIT STARTED THIS SHIFT AND PT TOLERATING INFUSION WELL AT 125 ML/HR. PT DENIES PAIN. DOES HAVE DIFFICULTY GETTING COMFORTABLE IN BED DESPITE MULTIPLE ATTEMPTS TO REPOSITION PT. PT CURRENTLY RESTING IN BED WITH BED IN LOWEST POSITION AND CALL LIGHT WIHTIN REACH.
[2024-11-27 03:43] VITALS: BP 127/80
[2024-11-27 05:12] LABS: Hematocrit 31.1 % (37.0-53.0); Hemoglobin 9.9 g/dL (13.5-17.5); Mean Corpuscular HGB Conc 31.8 g/dL (31.5-36.5); Mean Corpuscular Volume 82 fL (80-100); NRBC ABSOLUTE 0.04 K/mm3 (0.00-0.02); NRBC Auto 0.3 /100 WBC (0.0-0.2); Platelet Count 366 K/mm3 (150-400); RDW Coefficient Variation 15.9 % (11.7-14.2); RDW Standard Deviation 47.0 fL (35.1-46.3)
--- NOTE | 2024-11-27 05:17 | NUR ---
SHIFT SUMMARY PATIENT A/O X4 AND ABLE TO MAKE NEEDS KNOWN. NO ACUTE CHANGES THROUGHOUT THE SHIFT. PATIENT RECIEVED 2 UNITS PRBC'S. VITAL SIGNS REMAINED STABLE. NEPHROSTOMY TUBES DRAINING CLEAR YELLOW URINE TO GRAVITY. NO REPORTS OF PAIN, JUST STATES THAT THE BED IS UNCOMFORTABLE AND HES HAVING A HARD TIME FINDING A COMFORTABLE POSITION. BED IN LOWEST POSITION, CALL LIGHT IN REACH.
[2024-11-27 05:32] LABS: BAND PERCENT MAN 10 % (0-8); BASOPHILS ABSOLUTE MAN 0.00 K/mm3 (0.00-0.23); BASOPHILS PERCENT MAN 0 % (0-2); EOSINOPHILS ABSOLUTE MAN 0.00 K/mm3 (0.00-0.68); EOSINOPHILS PERCENT MAN 0 % (0-6); LYMPHOCYTES ABSOLUTE MAN 1.54 K/mm3 (0.84-5.20); LYMPHOCYTES PERCENT MAN 11 % (21-46); METAMYELOCYTE ABSOLUTE MAN 0.56 K/mm3 (0.00-0.00); METAMYELOCYTE PERCENT MAN 4 % (0-0); MONOCYTES ABSOLUTE MAN 0.56 K/mm3 (0.16-1.47); MONOCYTES PERCENT MAN 4 % (4-13); MYELOCYTE ABSOLUTE MAN 0.42 K/mm3 (0.00-0.00); MYELOCYTE PERCENT MAN 3 % (0-0); NEUTROPHILS ABSOLUTE MAN 10.98 K/mm3 (1.96-9.15); SEG NEUTROPHILS PERCENT MAN 68 % (41-73)
[2024-11-27 05:46] LABS: Alanine Aminotransfer (ALT/SGP 100.0 U/L (12-78); Albumin, Blood 1.7 g/dL (3.4-5.0); Albumin/Globulin Ratio 0.3 (0.8-1.8); Anion Gap 11.0 mmol/L (3-11); Aspartate Aminotrans (AST/SGOT 75.0 U/L (12-37); Bilirubin, Total 0.6 mg/dL (0.1-1.0); Blood Urea Nitrogen 22.0 mg/dL (8-24); CO2, Blood 21.0 mmol/L (21-32); Calcium, Blood 8.7 mg/dL (8.5-10.1); Chloride, Blood 105.0 mmol/L (98-108); Creatinine, Blood 1.04 mg/dL (0.60-1.20); Globulin, Blood 5.9 g/dL (2.2-4.0); Glucose, Blood 104.0 mg/dL (70-99); Potassium, Blood 3.4 mmol/L (3.5-5.5); Sodium, Blood 134.0 mmol/L (136-145); Total Protein, Blood 7.6 g/dL (6.4-8.2)
[2024-11-27 07:23] VITALS: BP 136/79
[2024-11-27] MEDS ORDERED: Potassium Chl 20MEQ/Water100ML 100 ML IV STA (07:50)
--- NOTE | 2024-11-27 15:24 | NUR ---
PT'S SISTER, SISTER'S , AND PT MOTHER HAVE CONCERNS REGARDING PT POSSIBLE DISCHARGE TOMORROW. PT LIVES WITH HIS 86-YEAR-OLD MOTHER, THEY AND PT FEEL PT IS TOO WEAK TO GO HOME AND WOULD LIKE SNF PLACEMENT. PT/OT HAS NOT WORKED WITH PT OVER WEEKEND. PER REPORT THIS RN RECIEVED YESTERDAY PT WAS INDEPENDENT WITH FWW IN ROOM. PT REFUSING TO GET OOB FOR THIS RN, PT HAS FLAT EFFECT AND REPORTS JUST WANTING TO LAY IN BED DESPITE RN EDUCATION. THIS RN UPDATED RESIDENT FOLLOWING PT VIA PHONE CALL REGARDING FAMILY CONCERNS AND PT REFUSING AMBULATION.
[2024-11-27 15:35] VITALS: BP 154/98
--- NOTE | 2024-11-27 16:02 | NUR ---
SHIFT SUMMARY NO ACUTE CHANGES, A/Ox4, ABLE TO MAKE NEEDS KNOWN. DOES NOT ENJOY HOSPITAL PROVIDED MEALS - PRIMARILY CONSUMING WATER, JUICE, YOGURT, AND MILK. GOOD URINE OUTPUT FROM BILATERAL NEPHROSTOMIES - CLEAR YELLOW URINE. PT DENIES PAIN. SEE PREVIOUS NOTE BY THIS RN REGARDING PT AND FAMILY CONCERNS RE DISCHARGE PLAN. PT REFUSING AMBULATION CT SCAN TECHNOLOGIST ATTEMPT TO GET PT UP INTO CHAIR. REPEAT CT COMPLETED TODAY. VANCO ADMINISTERED PER ORDERS. PT CURRENTLY RESTING IN BED WITH BED IN LOWEST POSITION AND CALL LIGHT IN REACH. APPEARS TO BE IN NO DISTRESS, PT MOTHER AT BEDSIDE.
[2024-11-27 19:26] VITALS: BP 158/88
--- NOTE | 2024-11-28 04:47 | NUR ---
SHIFT SUMMARY A/O X4- PATIENT RESTING IN BED MOST OF THE SHIFT. ENCOURAGED PATIENT TO CHANGE POSITIONS OR GET INTO THE RECLINER. PT DECLINED AMBULATING BUT GOT TO SIDE OF BED AND CHANGED ATTENDS AND LINENS WERE CHANGED. THIS RN CHANGED NEPHROSTOMY DRESSINGS THE DRESSINGS WERE LIFTING, SLIGHT REDNESS SURROUNDING INSERTION SITE. NO SWELLING OR DRAINAGE NOTED FROM INSERTION SITES. NEPHROSTOMY TUBES DRAINING CLEAR YELLOW URINE TO GRAVITY WITH GOOD OUTPUT. NO PAIN REPORTED THROUGHOUT SHIFT. VITAL SIGNS REMAINED STABLE. BED IN LOWEST POSITION, CALL LIGHT IN REACH.
[2024-11-28 05:09] LABS: Hematocrit 31.9 % (37.0-53.0); Hemoglobin 10.3 g/dL (13.5-17.5); Mean Corpuscular HGB Conc 32.3 g/dL (31.5-36.5); Mean Corpuscular Volume 83 fL (80-100); NRBC ABSOLUTE 0.03 K/mm3 (0.00-0.02); NRBC Auto 0.2 /100 WBC (0.0-0.2); Platelet Count 322 K/mm3 (150-400); RDW Coefficient Variation 16.5 % (11.7-14.2); RDW Standard Deviation 49.0 fL (35.1-46.3)
[2024-11-28 05:17] VITALS: BP 134/85
[2024-11-28 05:37] LABS: Alanine Aminotransfer (ALT/SGP 89.0 U/L (12-78); Albumin, Blood 1.7 g/dL (3.4-5.0); Albumin/Globulin Ratio 0.3 (0.8-1.8); Anion Gap 13.0 mmol/L (3-11); Aspartate Aminotrans (AST/SGOT 75.0 U/L (12-37); Bilirubin, Total 0.6 mg/dL (0.1-1.0); Blood Urea Nitrogen 20.0 mg/dL (8-24); CO2, Blood 20.0 mmol/L (21-32); Calcium, Blood 8.7 mg/dL (8.5-10.1); Chloride, Blood 104.0 mmol/L (98-108); Creatinine, Blood 1.08 mg/dL (0.60-1.20); Globulin, Blood 6.1 g/dL (2.2-4.0); Glucose, Blood 106.0 mg/dL (70-99); Potassium, Blood 3.7 mmol/L (3.5-5.5); Sodium, Blood 133.0 mmol/L (136-145); Total Protein, Blood 7.8 g/dL (6.4-8.2)
[2024-11-28 05:51] LABS: BAND PERCENT MAN 4 % (0-8); BASOPHILS ABSOLUTE MAN 0.00 K/mm3 (0.00-0.23); BASOPHILS PERCENT MAN 0 % (0-2); EOSINOPHILS ABSOLUTE MAN 0.00 K/mm3 (0.00-0.68); EOSINOPHILS PERCENT MAN 0 % (0-6); LYMPHOCYTES ABSOLUTE MAN 1.38 K/mm3 (0.84-5.20); LYMPHOCYTES PERCENT MAN 10 % (21-46); METAMYELOCYTE ABSOLUTE MAN 0.69 K/mm3 (0.00-0.00); METAMYELOCYTE PERCENT MAN 5 % (0-0); MONOCYTES ABSOLUTE MAN 0.96 K/mm3 (0.16-1.47); MONOCYTES PERCENT MAN 7 % (4-13); MYELOCYTE ABSOLUTE MAN 0.13 K/mm3 (0.00-0.00); MYELOCYTE PERCENT MAN 1 % (0-0); NEUTROPHILS ABSOLUTE MAN 10.66 K/mm3 (1.96-9.15); SEG NEUTROPHILS PERCENT MAN 73 % (41-73)
[2024-11-28] MEDS ORDERED: FentaNYL Citrate 50 MCG/ML 2 ML Injection IV PRN (06:25)
[2024-11-28 08:06] VITALS: BP 130/84
[2024-11-28 14:24] LABS: Vancomycin, Trough 13.5 ug/mL (5.0-10.0)
[2024-11-28] MEDS ORDERED: VISBIOME 112.51 EACH PO (17:47)
--- NOTE | 2024-11-28 18:40 | NUR ---
DISCHARGE SUMMARY PT DISCHARGED HOME WITH HH. BILATERAL PIV REMOVED AND SITE APPEARS WNL. DISCHARGE INSTRUCTIONS REVIEWED WITH PT AND PT FRIEND KIM WHO IS ASSISTING WITH CARE. INSTRUCTED PT ON EMPTYING NEPHROSTOMY BAGS AND DRESSING CHANGES. SUPPLIES PROVIDED FOR DRESSING CHANGES. PT TO FOLLOW UP WITH DR. QUINN AND DR. FRANCO. PT ABLE TO STAND AND AMBULATE INDEPENDENTLY WITH FWW TO WHEELCHAIR. TAKEN DOWN BY FAMILY FRIEND PER THEIR REQUEST.
== END 2024-11-28 18:34 | disposition home health service (06) | DRG 853 ==
LOC: ER 16:20 → MEDS 20:33 → PCU 20:33 → MEDS 11-22 21:18
PROVIDERS: Emergency Medicine; Internal Medicine; Internal Medicine Hematology & Oncology; Nurse Practitioner Acute Care; Student in an Organized Health Care Education/Training Program; ADMIT Student in an Organized Health Care Education/Training Program
PROC: 0TBB8ZX Excision of Bladder, Via Natural or Artificial Opening Endoscopic, Diagnostic (ICD-10-PCS; 2024-11-18)
PROC: 3E03329 Introduction of Other Anti-infective into Peripheral Vein, Percutaneous Approach (ICD-10-PCS; 2024-11-18)
PROC: 30233N1 Transfusion of Nonautologous Red Blood Cells into Peripheral Vein, Percutaneous Approach (ICD-10-PCS; 2024-11-20)
PROC: 0T9330Z Drainage of Right Kidney Pelvis with Drainage Device, Percutaneous Approach (ICD-10-PCS; principal; 2024-11-21)
PROC: 0T9430Z Drainage of Left Kidney Pelvis with Drainage Device, Percutaneous Approach (ICD-10-PCS; 2024-11-21)
PROC: BT131ZZ Fluoroscopy of Bilateral Kidneys using Low Osmolar Contrast (ICD-10-PCS; 2024-11-21)
DX: A40.8 Other streptococcal sepsis (principal); N17.0 Acute kidney failure with tubular necrosis; N13.6 Pyonephrosis; C78.7 Secondary malignant neoplasm of liver and intrahepatic bile duct; C79.51 Secondary malignant neoplasm of bone; M84.58XA Pathological fracture in neoplastic disease, other specified site, initial encounter for fracture; E87.20 Acidosis, unspecified; C67.1 Malignant neoplasm of dome of bladder; R65.20 Severe sepsis without septic shock; D63.0 Anemia in neoplastic disease; R73.03 Prediabetes; R74.02 Elevation of levels of lactic acid dehydrogenase [LDH]; K76.0 Fatty (change of) liver, not elsewhere classified; D75.839 Thrombocytosis, unspecified
CPT/HCPCS: 36415; 36430; 71260; 74176; 76937; 80048; 80053; 80069; 80202; 80320; 81001; 82140; 82607; 82728; 82746; 82947; 83036; 83540; 83550; 83605; 83690; 83735; 84443; 85014; 85018; 85025; 85060; 85610; 86850; 86900; 86901; 86923; 87040; 87071; 87075; 87086; 87184; 87205; 88305; 88341; 88342; 93005; 93010; 94760; 96365-59; 97161; 97165; 97530; 97535; 99152; 99153; 99284-25; A9270; C1729; C1769; C1894; G0480; J0696; J1100; J1644; J2250; J2405; J2704; J3010; J3373; J3480; J7030; J7040; J7050; J7120; P9016; Q9967

== ENCOUNTER 2024-12-05 10:57 | Inpatient (IN) | payer OTHER ==
[~2024-12-05] VITALS: Ht 165.1 cm; Wt 90.8 kg
[~2024-12-05 10:57] MED LIST: ASCORBIC ACID500 MG; MULVITA PO; VISBIOME 112.51 EACH PO
[2024-12-05 11:56] LABS: Hematocrit 29.9 % (37.0-53.0); Hemoglobin 9.6 g/dL (13.5-17.5); Mean Corpuscular HGB Conc 32.1 g/dL (31.5-36.5); Mean Corpuscular Volume 82 fL (80-100); NRBC ABSOLUTE 0.04 K/mm3 (0.00-0.02); NRBC Auto 0.6 /100 WBC (0.0-0.2); Platelet Count 142 K/mm3 (150-400); RDW Coefficient Variation 17.2 % (11.7-14.2); RDW Standard Deviation 51.0 fL (35.1-46.3)
[2024-12-05] MEDS ORDERED: NS 1,000 ML IV SCH ×3 (12:00→17:00)
[2024-12-05 12:16] LABS: Alanine Aminotransfer (ALT/SGP 62.0 U/L (12-78); Albumin, Blood 1.8 g/dL (3.4-5.0); Albumin/Globulin Ratio 0.3 (0.8-1.8); Anion Gap 13.0 mmol/L (3-11); Aspartate Aminotrans (AST/SGOT 189.0 U/L (12-37); Bilirubin, Total 0.5 mg/dL (0.1-1.0); Blood Urea Nitrogen 60.0 mg/dL (8-24); CO2, Blood 18.0 mmol/L (21-32); Calcium, Blood 9.6 mg/dL (8.5-10.1); Chloride, Blood 106.0 mmol/L (98-108); Creatinine, Blood 1.74 mg/dL (0.60-1.20); Globulin, Blood 5.8 g/dL (2.2-4.0); Glucose, Blood 114.0 mg/dL (70-99); Potassium, Blood 3.7 mmol/L (3.5-5.5); Sodium, Blood 133.0 mmol/L (136-145); Total Protein, Blood 7.6 g/dL (6.4-8.2)
[2024-12-05 12:24] LABS: BAND PERCENT MAN 13 % (0-8); BASOPHILS ABSOLUTE MAN 0.00 K/mm3 (0.00-0.23); BASOPHILS PERCENT MAN 0 % (0-2); EOSINOPHILS ABSOLUTE MAN 0.21 K/mm3 (0.00-0.68); EOSINOPHILS PERCENT MAN 3 % (0-6); LYMPHOCYTES ABSOLUTE MAN 0.99 K/mm3 (0.84-5.20); LYMPHOCYTES PERCENT MAN 14 % (21-46); METAMYELOCYTE ABSOLUTE MAN 0.21 K/mm3 (0.00-0.00); METAMYELOCYTE PERCENT MAN 3 % (0-0); MONOCYTES ABSOLUTE MAN 0.56 K/mm3 (0.16-1.47); MONOCYTES PERCENT MAN 8 % (4-13); MYELOCYTE ABSOLUTE MAN 0.14 K/mm3 (0.00-0.00); MYELOCYTE PERCENT MAN 2 % (0-0); NEUTROPHILS ABSOLUTE MAN 4.97 K/mm3 (1.96-9.15); SEG NEUTROPHILS PERCENT MAN 57 % (41-73)
[2024-12-05] MEDS ORDERED: Ondansetron HCl 2 MG / ML 2ML Vial IV ONE (13:05)
[2024-12-05] MEDS ORDERED: FentaNYL Citrate 50 MCG/ML 2 ML Injection IV ONE (13:05)
[2024-12-05 13:18] LABS: Source, Urine Clean Catch
[2024-12-05 13:28] LABS: Color, Urine Yellow (P-Yellow); Glucose Qualitative, Urine Neg (Neg); Ketones, Urine Neg (Neg); Leukocyte Esterase, Urine 1+ (Neg); Protein, Urine 3+ (Neg); Specific Gravity, Urine 1.015 (1.003-1.022); Urobilinogen, Urine NORM (Normal)
[2024-12-05 13:49] LABS: Bilirubin, Urine 2+ (Neg)
[2024-12-05 13:57] LABS: Red Blood Cells, Urine 0-2 /hpf (0-2)
[2024-12-05] MEDS ORDERED: FLU VACC TS2025-26(6MOS UP)/PF 45 MCG/0.5 ML SYRINGE IM ONE (16:05)
[2024-12-05] MEDS ORDERED: CefTRIAXone Sodium 2,000 MG in NS 100 ML IV SCH (16:30)
--- NOTE | 2024-12-05 18:22 | NUR ---
ARRIVAL TO PCU 7 PT ARRIVED TO PCU 7 AT APPROXIMATELY 1800. PT SLID OVER FROM ER [place] TO HOSPITAL BED BY THREE CLINICAL STAFF MEMBERS. PT A&Ox4, CALLS AND COMMUNICATES NEEDS APPROPRIATELY. ORIENTED TO CALL LIGHT / UNIT. BP STABLE, SINUS 90's, DENIES CP/PRESSURE. SpO2> 92% RA, DENIES SOB.
[2024-12-05 19:48] VITALS: BP 90/66
[2024-12-05] MEDS ORDERED: NS 1,000 ML IV ONE (20:22)
[2024-12-05] MEDS ORDERED: Lactobacil 2-S.Thermo-Bifido 1 1 Cap PO SCH (21:00)
[2024-12-05 23:27] VITALS: BP 104/66
[2024-12-06] VITALS (30 sets, daily range): BP systolic 76–131; BP diastolic 50–99
[2024-12-06 04:52] LABS: Hematocrit 28.3 % (37.0-53.0); Hemoglobin 8.9 g/dL (13.5-17.5); Mean Corpuscular HGB Conc 31.4 g/dL (31.5-36.5); Mean Corpuscular Volume 83 fL (80-100); NRBC ABSOLUTE 0.08 K/mm3 (0.00-0.02); NRBC Auto 1.2 /100 WBC (0.0-0.2); Platelet Count 123 K/mm3 (150-400); RDW Coefficient Variation 17.5 % (11.7-14.2); RDW Standard Deviation 53.1 fL (35.1-46.3)
[2024-12-06 05:07] LABS: Anion Gap 11.0 mmol/L (3-11); Blood Urea Nitrogen 50.0 mg/dL (8-24); CO2, Blood 20.0 mmol/L (21-32); Calcium, Blood 9.1 mg/dL (8.5-10.1); Chloride, Blood 110.0 mmol/L (98-108); Creatinine, Blood 1.74 mg/dL (0.60-1.20); Glucose, Blood 103.0 mg/dL (70-99); Potassium, Blood 4.3 mmol/L (3.5-5.5); Sodium, Blood 137.0 mmol/L (136-145)
[2024-12-06 05:13] LABS: BAND PERCENT MAN 21 % (0-8); BASOPHILS ABSOLUTE MAN 0.00 K/mm3 (0.00-0.23); BASOPHILS PERCENT MAN 0 % (0-2); EOSINOPHILS ABSOLUTE MAN 0.26 K/mm3 (0.00-0.68); EOSINOPHILS PERCENT MAN 4 % (0-6); LYMPHOCYTES ABSOLUTE MAN 0.74 K/mm3 (0.84-5.20); LYMPHOCYTES PERCENT MAN 11 % (21-46); METAMYELOCYTE ABSOLUTE MAN 0.13 K/mm3 (0.00-0.00); METAMYELOCYTE PERCENT MAN 2 % (0-0); MONOCYTES ABSOLUTE MAN 0.20 K/mm3 (0.16-1.47); MONOCYTES PERCENT MAN 3 % (4-13); MYELOCYTE ABSOLUTE MAN 0.06 K/mm3 (0.00-0.00); MYELOCYTE PERCENT MAN 1 % (0-0); NEUTROPHILS ABSOLUTE MAN 5.31 K/mm3 (1.96-9.15); SEG NEUTROPHILS PERCENT MAN 58 % (41-73)
--- NOTE | 2024-12-06 06:22 | NUR ---
NOC SHIFT SUMMARY PT IS ALERT BUT SLEEPY, HE IS EASILY AROUSABLE. PT IS VERY PAINFUL "ALL OVER" HE HAS A RASH T/O HIS BODY UNSURE OF WHERE IT CAME FROM, SAYS IT APPEARED A FEW DAYS AGO. THE RASH IS ITCHY TO HIM. PT HAD DRIED BM ON HIS BACKSIDE WHEN HE ARRIVED. PT WAS CLEANED UP SMALL STAGE 11 PRESSURE INJURY NOTED ON BUTTOCK ONCE HE WAS CLEANED UP (PICTURE IN CHART) MEPELIEX PLACED. PT BP REMAINS SOFT W/ MAP >65. PT HR RATE HAS SLOWLY TRENDED UP (SEE VITALS). PT RR RATE HAS BEEN BETWEEN 25-40 SINCE AFTER MIDNIGHT. L NEP TUBE HAS GOOD OUTPUT, PT STILL MAKES URINE AND HAD TWO INCONTIENT VOIDS. IV FLUIDS INFUSING PER EMAR. BED BATH PROVIDED, LIEN CHANGED. BED IN LOWEST POSTION FOR SAFETY. CALL LIGHT IN REACH.
[2024-12-06] MEDS ORDERED: NS 1,000 ML IV SCH ×2 (07:00→16:00)
[2024-12-06] MEDS ORDERED: Rocuronium Bromide 10 MG/ML 5ML Injection IV ONE (07:51)
[2024-12-06] MEDS ORDERED: Etomidate 2MG / ML 10ML Vial IV ONE (07:51)
[2024-12-06] MEDS ORDERED: Multivitamins 1 Tab PO SCH (09:00)
[2024-12-06] MEDS ORDERED: FentaNYL Citrate 50 MCG/ML 2 ML Injection ONE (09:50)
[2024-12-06] MEDS ORDERED: Midazolam HCl 1MG / ML 2ML Vial ONE (09:50)
[2024-12-06] MEDS ORDERED: NS 1,000 ML IV ONE (09:51)
--- NOTE | 2024-12-06 10:42 | NUR ---
ASSUMPTION OF CARE: PATIENT IS VERY DROWSY, EASILY AROUSABLE, CAN ANSWER MOST QUESTIONS, BUT DISORIENTED TO TIME AND UNSURE IF ORIENTED TO COMPLEX CURRENT SITUTAION. PATIENT DENIES CHEST PAIN/PRESSURE OR SOB DESPITE HAVING RR IN THE MID 20'S WHILE SLEEPING, CURRENLTY ON 3.5L FOR SPO2 >92%. VERY DIM BASES WITH SOME MINOR SHALLOWING TO BREATHING, EDUCATED ON COUGH AND DEEP BREATH, ALREADY AT PROCEDURE, FEBRILE AT 101.2 AT PROCEDURE, MANAGER PART NOTIFED THIS RN, WAS NOT FEBRILE AT AM VITALS, PROVIDER NOTIFIED OF ABOVE, SISTER UPDATED ON SITUATION. PATIENT SYSTOLIC PRESSURES HAVE BEEN IN THE 100'S WITH A MAP >65 FOR THIS RN. NO OUTPUT NOTED ON RIGHT NEPH TUBE WHILE LEFT DRAINING WELL, 275 DUMPED THIS AM WITH ASSESSMENT. PATIENT WITH 2 IV'S R HAND AND R AC PATENT CDI AFTER AC DRESSING CHANGE. NO ACUTE CONCERNS NOT ADDRESSED AT THIS TIME. PLAN OF CARE CONTINUES.
[2024-12-06] MEDS ORDERED: ZINC OXIDE/PETROLATUM, YELLOW 1 APPLIC/71 GM PASTE TOP PRN (15:45)
[2024-12-06] MEDS ORDERED: Meropenem 2,000 MG in NS 250 ML IV SCH (16:00)
[2024-12-06] MEDS ORDERED: Enoxaparin 40 MG/0.4 ML SYR SC SCH (17:00)
[2024-12-06] MEDS ORDERED: Vancomycin (Pharmacy Consult) IV PRN (18:10)
--- NOTE | 2024-12-06 19:24 | NUR ---
EOS: CHANGES FROM ASSUMPTION. PATIENT AT APPROXIMATELY 1500 APPEARED TO BE WORSENING IN CONDITION HE WAS TACHYPNIC EXTREMELY WARM TO THE TOUCH, ON REASSESSMENT OF THE NEW NEPH TUBE, IT WAS LEAKING, STAVE PLANER TENDER ALSO SEEN NOTIFIED IR , CT ABD; PENDING RESULTS. TEMP MAX OF 101.8 ON RECTAL PROBE, IS NOW LESS THAN 100.0. HR WAS AT 120'S. SYSTOLIC BLOOD PRESSURE LOW 90'S DURING THIS NOW HAVE IMPROVED TO UPPER 90'S HR IS BELOW 100 AT TIMES. RR WAS IN THE UPPER 20'S LOW 30'S, NOW RESTING RR 20'S. CBG HAS BEEN >100 HAVE BEEN CHECKING Q6 POOR APPETITE AND POTENTIAL CONCERN. ADDITIONALLY IS NOW RUNNING NS AT 200mL NEW ORDERS FOR VANCO AND MEROPENEM. DENIES CHEST PAIN/PRESSURE OR SOB, DID HAVE POSSIBLE TELE, CHANGES EKG PREFORMED NOTIFIED HOSPITALIST, PATIENT ASYMPTOMATIC, MONITOR. PLAN OF CARE CONTINUES.
[2024-12-06] MEDS ORDERED: Albumin (Human) 25gm/100ml 100 ML IV ONE (23:55)
[2024-12-07] VITALS (126 sets, daily range): BP systolic 67–126; BP diastolic 46–91
[2024-12-07 00:27] LABS: Hematocrit 38.1 % (37.0-53.0); Hemoglobin 10.9 g/dL (13.5-17.5); Mean Corpuscular HGB Conc 28.6 g/dL (31.5-36.5); NRBC ABSOLUTE 0.19 K/mm3 (0.00-0.02); NRBC Auto 3.9 /100 WBC (0.0-0.2); Platelet Count 108 K/mm3 (150-400); RDW Coefficient Variation 18.2 % (11.7-14.2); RDW Standard Deviation 59.8 fL (35.1-46.3)
[2024-12-07 00:35] LABS: Prothrombin Time Results 13.2 Sec (9.7-11.5)
[2024-12-07 00:38] LABS: Alanine Aminotransfer (ALT/SGP 46.0 U/L (12-78); Albumin, Blood 1.4 g/dL (3.4-5.0); Albumin/Globulin Ratio 0.3 (0.8-1.8); Anion Gap 15.0 mmol/L (3-11); Aspartate Aminotrans (AST/SGOT 132.0 U/L (12-37); Bilirubin, Total 0.5 mg/dL (0.1-1.0); Blood Urea Nitrogen 45.0 mg/dL (8-24); CO2, Blood 12.0 mmol/L (21-32); Calcium, Blood 8.6 mg/dL (8.5-10.1); Chloride, Blood 115.0 mmol/L (98-108); Creatinine, Blood 1.86 mg/dL (0.60-1.20); Globulin, Blood 5.1 g/dL (2.2-4.0); Glucose, Blood 75.0 mg/dL (70-99); Magnesium, Blood 1.8 mg/dL (1.6-2.4); Phosphorus, Blood 4.3 mg/dL (2.5-4.9); Potassium, Blood 4.4 mmol/L (3.5-5.5); Sodium, Blood 138.0 mmol/L (136-145); Total Protein, Blood 6.5 g/dL (6.4-8.2)
[2024-12-07 00:52] LABS: Mean Corpuscular Volume 91 fL (80-100)
[2024-12-07] MEDS ORDERED: NS 500 ML IV ONE (01:29)
--- NOTE | 2024-12-07 01:32 | NUR ---
TRANSFER TO ICU NOTE SHORTLY AFTER SHIFT CHANGE, PT'S BLOOD PRESSURES NOTED TO BE TRENDING DOWN WITH INCREASING HR (ST 130-150s), AND INCREASING RECTAL TEMPERATURE. SEE V/S FOR DETAILS. NS INFUSING ORDERED PER EMAR AND PRN TYLENOL GIVEN. TEMPERATURE CONTINUED TO RISE WITH PT ENDORSING FEELING COLD WITH SHAKES NOTED. DR. PERRY NOTIFIED WITH MD TO BEDSIDE TO EVALUATE. ADDITIONAL ORDERS FOR TYLENOL TO BE GIVEN. ICE PACKS ALSO PLACED IN ARMPITS AND GROIN. DR. ETIENNE NOTIFIED WITH MD TO BEDSIDE TO EVALUATE PT. RASH NOTED DURING SHIFT CHANGE INCREASING UP INTO PT'S TORSO WITH BLOOD PRESSURES CONTINUING TO DROP. ORDERS FOR TRANSFER TO ICU WITH INITIATION OF PRESSURES WITH ADDITIONAL ORDERS TO FOLLOW. SEE EMAR FOR ADMINISTRATION DETAILS. PT'S O2 NEEDS NOTED TO HAVE INCREASED WITH PT NEEDING TO BE PLACED ON NRB TO MAINTAIN SPO2 >90%. PT ALSO STARTING TO HAVE SCANT BLOOD MIXED IN WITH THICK LOWE SPUTUM. PT TRANSFERED TO ICU 5 WITH REPORT GIVEN TO WOOD MILLER JEAN PIERRE DE LEÓN. SEE CHARTED V/S FOR DETAILS.
[2024-12-07] MEDS ORDERED: Midazolam HCL 50 MG in NS 40 ML IV PRN (01:35)
[2024-12-07] MEDS ORDERED: NS 250 ML IV ONE (01:35)
[2024-12-07] MEDS ORDERED: NS 1,000 ML IV SCH (01:35)
[2024-12-07 01:43] LABS: BAND PERCENT MAN 30 % (0-8); BASOPHILS ABSOLUTE MAN 0.00 K/mm3 (0.00-0.23); BASOPHILS PERCENT MAN 0 % (0-2); EOSINOPHILS ABSOLUTE MAN 0.00 K/mm3 (0.00-0.68); EOSINOPHILS PERCENT MAN 0 % (0-6); LYMPHOCYTES ABSOLUTE MAN 0.48 K/mm3 (0.84-5.20); LYMPHOCYTES PERCENT MAN 10 % (21-46); METAMYELOCYTE ABSOLUTE MAN 0.14 K/mm3 (0.00-0.00); METAMYELOCYTE PERCENT MAN 3 % (0-0); MONOCYTES ABSOLUTE MAN 0.04 K/mm3 (0.16-1.47); MONOCYTES PERCENT MAN 1 % (4-13); NEUTROPHILS ABSOLUTE MAN 3.66 K/mm3 (1.96-9.15); SEG NEUTROPHILS PERCENT MAN 45 % (41-73)
[2024-12-07 01:44] LABS: MYELOCYTE ABSOLUTE MAN 0.48 K/mm3 (0.00-0.00); MYELOCYTE PERCENT MAN 10 % (0-0); PROMYELOCYTE ABSOLUTE MAN 0.04 K/mm3 (0.00-0.00); PROMYELOCYTE PERCENT MAN 1 % (0-0)
[2024-12-07] MEDS ORDERED: Cetylpyridinium Chloride 1 EA MISC MT SCH (02:20)
[2024-12-07] MEDS ORDERED: Sodium Bicarb 8.4% Inj 150 MEQ in Dextrose 5% 1,000 ML IV SCH (02:30)
[2024-12-07] MEDS ORDERED: Sodium Bicarb 8.4% 1 MEQ/ML 50 ML Vial IV ONE (03:00)
[2024-12-07] MEDS ORDERED: Hydrogen Peroxide 1.5 % Solution MT SCH (04:00)
[2024-12-07 04:08] LABS: Hematocrit 28.1 % (37.0-53.0); Hemoglobin 8.8 g/dL (13.5-17.5); Mean Corpuscular HGB Conc 31.3 g/dL (31.5-36.5); NRBC ABSOLUTE 0.25 K/mm3 (0.00-0.02); NRBC Auto 4.2 /100 WBC (0.0-0.2); Platelet Count 105 K/mm3 (150-400); RDW Coefficient Variation 18.1 % (11.7-14.2); RDW Standard Deviation 54.6 fL (35.1-46.3)
[2024-12-07 04:21] LABS: Mean Corpuscular Volume 84 fL (80-100)
[2024-12-07 04:26] LABS: Alanine Aminotransfer (ALT/SGP 37.0 U/L (12-78); Albumin, Blood 1.7 g/dL (3.4-5.0); Albumin/Globulin Ratio 0.4 (0.8-1.8); Anion Gap 13.0 mmol/L (3-11); Aspartate Aminotrans (AST/SGOT 123.0 U/L (12-37); Bilirubin, Total 0.7 mg/dL (0.1-1.0); Blood Urea Nitrogen 49.0 mg/dL (8-24); CO2, Blood 19.0 mmol/L (21-32); Calcium, Blood 8.1 mg/dL (8.5-10.1); Chloride, Blood 115.0 mmol/L (98-108); Creatinine, Blood 2.44 mg/dL (0.60-1.20); Globulin, Blood 3.9 g/dL (2.2-4.0); Glucose, Blood 112.0 mg/dL (70-99); Potassium, Blood 4.5 mmol/L (3.5-5.5); Sodium, Blood 142.0 mmol/L (136-145); Total Protein, Blood 5.6 g/dL (6.4-8.2)
[2024-12-07] MEDS ORDERED: Vasopressin 20 UNITS in NS 100 ML IV SCH (04:30)
[2024-12-07 05:13] LABS: Bilirubin, Urine Neg (Neg); Color, Urine Red (P-Yellow); Glucose Qualitative, Urine Neg (Neg); Ketones, Urine Neg (Neg); Leukocyte Esterase, Urine 3+ (Neg); Protein, Urine 4+ (Neg); Specific Gravity, Urine 1.010 (1.003-1.022); Urobilinogen, Urine NORM (Normal)
[2024-12-07 05:22] LABS: White Blood Cells, Urine 50-100 /hpf (0-5)
[2024-12-07 05:23] LABS: Red Blood Cells, Urine 50-100 /hpf (0-2)
--- NOTE | 2024-12-07 06:04 | NUR ---
SHIFT SUMMARY PT ARRIVES ON UNIT AT [address] ETIENNE AT BEDSIDE AT 0055. DECISION WAS MADE TO INTUBATE PT. 0106 - 15 ETOMIDATE GIVEN 0107 - 80 ROCURONIUM GIVEN. ALEJANDRO INCREASED TO 40 PER VERBAL INSTRUCTION FROM PHYSICIAN. RT BAGGING PT 0109 - ETT PLACED. 8.0, 27 AT TEETH. PLACEMENT CHECKED WITH BREATH SOUNDS BY KITCHENWHERE MAKER AND THIS NURSE, POSSITIVE BREATH SOUNDS BILATERALY 0112 - OG TUBE PLACED BY KITCHENWHERE MAKER. POSITIVE OSCULTATION OF GI CONTENTS WITH AIR. PT HAS BEEN RESTING IN BED. DIFFICULT TO SEDATE WITHOUT DROP IN BLOOD PRESSURE. PT ABLE TO FOLLOW DIRECTIONS AND SQUEEZE HANDS BUT DOES NOT CALM WHEN THIS NURSE ATTEMPTS TO REORIENT HIM. PTS ALEJANDRO HAS BEEN GRADUALLY INCREASED, PHYSICIAN ORDERED ADDITION MEDICATION TO ASSIST WITH LOW BP. PT IS ON VERSED WELL PROPOFOL AT THIS TIME. CENTRAL LINE WAS ALSO PLACED BY DR ETIENNE. MEDICATIONS CURRENTLY INFUSING THROUGH THAT LINE. WILL CONTINUE TO MONITOR UNTIL REPORT PASSED TO AY SHIFT TEAM.
--- NOTE | 2024-12-07 08:00 | NUR ---
ASSUMPTION OF CARE RECEIVED REPORT FROM [facility] NURSE. PT IS INTUBATED AND SEDATED. PT HAS A RASS OF +1. VENT SETTINGS 16/460/5/40%. OG TUBE PLACED AND ATTACHED TO LIS WITH COFFEE GROUND EMESIS. PT IS TACHYPNEIC WITH SHALLOW RESPIRATIONS AND ACCESSORY MUSCLE USE. PT ON A ALEJANDRO, VASOPRESSIN, PROP, AND VERSED DRIP. PT RESPONDS TO VERBAL AND NOXIOUS STIMULI. PT HAS DIMINISHED LUNG SOUNDS T/O LOBES. PEACE CATH IS IN PLACE DRAINING TO GRAVITY AND HAS BILATERAL NEPHROSTOMY TUBES WITH OUTPUT OF YELLOW URINE. PT IS FEBRILE WITH A TEMPERATURE OF 103.0. PT HAS A RED RAISED RASH THROUGHOUT HIS BODY. HR IS IN 100-110S, SINUS RHYTHM AND MAP>65 WITH ALEJANDRO AND VASOPRESSIN DRIP. PLAN TO TRANSITION FROM ALEJANDRO TO LEVOPHED.
[2024-12-07] MEDS ORDERED: Pantoprazole Sodium 40 MG Injection IV SCH ×2 (09:00→21:00)
--- NOTE | 2024-12-07 09:30 | NUR ---
WASTE WASTED 50ML OF VERSED WTIH DEAN CHIANG RN.
[2024-12-07] MEDS ORDERED: FentaNYL Citrate 50 MCG/ML 2 ML Injection IV PRN (11:00)
[2024-12-07] MEDS ORDERED: Vancomycin (Pharmacy Consult) IV SCH (11:05)
[2024-12-07 12:18] LABS: Hematocrit 29.2 % (37.0-53.0); Hemoglobin 9.1 g/dL (13.5-17.5)
[2024-12-07] MEDS ORDERED: Dose Adjust by Pharmacy XX STA (12:57)
[2024-12-07 13:27] LABS: Anion Gap 18.0 mmol/L (3-11); Blood Urea Nitrogen 55.0 mg/dL (8-24); CO2, Blood 15.0 mmol/L (21-32); Calcium, Blood 7.8 mg/dL (8.5-10.1); Chloride, Blood 112.0 mmol/L (98-108); Creatinine, Blood 2.72 mg/dL (0.60-1.20); Glucose, Blood 181.0 mg/dL (70-99); Potassium, Blood 5.1 mmol/L (3.5-5.5); Sodium, Blood 140.0 mmol/L (136-145)
[2024-12-07 13:49] LABS: Source, Urine Nephrostomy
[2024-12-07 14:10] LABS: Color, Urine Yellow (P-Yellow); Glucose Qualitative, Urine Neg (Neg); Ketones, Urine 1+ (Neg); Leukocyte Esterase, Urine 1+ (Neg); Protein, Urine 4+ (Neg); Specific Gravity, Urine 1.015 (1.003-1.022); Urobilinogen, Urine NORM (Normal)
[2024-12-07 14:16] LABS: Bilirubin, Urine 1+ (Neg)
[2024-12-07 14:18] LABS: Red Blood Cells, Urine 50-100 /hpf (0-2); White Blood Cells, Urine 25-50 /hpf (0-5)
--- NOTE | 2024-12-07 18:40 | NUR ---
SHIFT SUMMARY PT INTUBATED WITH SEDATED. AT START OF SHIFT PT HAD A RASS OF +1, TACHYPNEIC, AND FIGHTING THE VENT. PT WAS ON A ALEJANDRO, VASOPRESSIN, VERSED, PROP, AND BICARD DRIP. CONSULTATED DR. VASQUEZ, TITRATED OFF OF ALEJANDRO AND VERSED. PT CURRENTLY ON LEVO, PROP, AND BICARB. PT WILL RESPOND TO NOXIOUS STIMULI. PT HAS DIMINISHED LUNG SOUNDS T/O. VENT SETTINGS 16/460/5/30%, O2 88-100%. PT HAS BEEN IN SINUS RHYTHM/SINUS TACH WITH HR IN 90-110S. MAP >65 WITH LEVO DRIP. PT HAS BILATERAL NEPHRO TUBES, WNL. PEACE CATH WAS IN PLACE AT START OF SHIFT, DC'D AND REMOVED, WNL. PT HAS BEEN FEBRILE T/O SHIFT, TX WTIH FANS AND ICE PACKS, TEMP DECREASED FROM 103 TO 100. PT HAS A RED RAISED RASH THROUGHOUT HIS BODY THAT WAS PRESENT ON ADMISSION. PT CURRENTLY UNDERGOING CANCER TX. PT HAD A BM AT END OF SHIFT.
[2024-12-07] MEDS ORDERED: Heparin Sodium,Porcine 5,000 UNIT/0.5 ML SDV SC SCH (21:00)
--- NOTE | 2024-12-07 22:30 | NUR ---
ASSUMPTION OF CARE/ASSESSMENT: ASSUMED CARE OF PT AT 1900; BEDSIDE SHIFT REPORT RECIEVED FROM JENIFER RN'S. PT INTUBATED AND SEDATED WITH VENT SETTINGS AC/VC 16/460/5/30%. PT TACHYPNEIC IN THE 30'S. PT SEDATED WITH PROPOFOL @ 50 MCG AND PRN FENTANYL FOR PAIN; RAAS -3 TO -4, NOT FOLLOWING COMMANDS. LUNGS CLEAR AND DIM THROUGHOUT, SPO2 90<. SR ON MONITOR WITH HR 90'S, SBP 100'S AND MAP 65<; LEVO @ 18 MCG AND VASO @ 0.04 UNITS. PT HAS OGT TO LIS WITH BROWN, COFFEE-GROUND OUTPUT NOTED, PROVIDERS AWARE. PT HAS BILATERAL NEPHROSTOMY TUBES IN PLACE, DRESSINGS ARE C/D/I AND ARE DRAINING TO GRAVITY; URINE YELLOW, CLEAR. PT HAS DIFFUSE RED RASH OVER ENTIRE BODY, HOT TO TOUCH. RECTAL TEMP PROBE IN PLACE WITH CORE READING 100.6. RIJ CENTRAL LINE THAT IS PATENT AND INFUSING. BICARB @ 75 MLS/HR. PIVS TO LAC AND RAC THAT ARE PATENT AND SALINE LOCKED. PT BACK FROM CT FOR PE STUDY, PENDING RESULTS.
[2024-12-07 23:32] LABS: Hematocrit 26.1 % (37.0-53.0); Hemoglobin 8.4 g/dL (13.5-17.5)
[2024-12-08] VITALS (80 sets, daily range): BP systolic 76–125; BP diastolic 42–97
[2024-12-08 03:32] LABS: Hematocrit 27.1 % (37.0-53.0); Hemoglobin 8.8 g/dL (13.5-17.5); Mean Corpuscular HGB Conc 32.5 g/dL (31.5-36.5); Mean Corpuscular Volume 84 fL (80-100); NRBC ABSOLUTE 0.24 K/mm3 (0.00-0.02); NRBC Auto 4.3 /100 WBC (0.0-0.2); Platelet Count 93 K/mm3 (150-400); RDW Coefficient Variation 18.3 % (11.7-14.2); RDW Standard Deviation 56.1 fL (35.1-46.3)
[2024-12-08 03:57] LABS: Albumin, Blood 1.5 g/dL (3.4-5.0); Anion Gap 17 mmol/L (3-11); Blood Urea Nitrogen 65 mg/dL (8-24); CO2, Blood 18 mmol/L (21-32); Calcium, Blood 6.4 mg/dL (8.5-10.1); Chloride, Blood 110 mmol/L (98-108); Creatinine, Blood 2.67 mg/dL (0.60-1.20); Glucose, Blood 174 mg/dL (70-99); Magnesium, Blood 1.6 mg/dL (1.6-2.4); Phosphorus, Blood 6.9 mg/dL (2.5-4.9); Potassium, Blood 4.7 mmol/L (3.5-5.5); Sodium, Blood 140 mmol/L (136-145)
[2024-12-08 04:17] LABS: BAND PERCENT MAN 48 % (0-8); BASOPHILS ABSOLUTE MAN 0.00 K/mm3 (0.00-0.23); BASOPHILS PERCENT MAN 0 % (0-2); EOSINOPHILS ABSOLUTE MAN 0.05 K/mm3 (0.00-0.68); EOSINOPHILS PERCENT MAN 1 % (0-6); LYMPHOCYTES ABSOLUTE MAN 0.67 K/mm3 (0.84-5.20); LYMPHOCYTES PERCENT MAN 12 % (21-46); METAMYELOCYTE ABSOLUTE MAN 0.11 K/mm3 (0.00-0.00); METAMYELOCYTE PERCENT MAN 2 % (0-0); MONOCYTES ABSOLUTE MAN 0.16 K/mm3 (0.16-1.47); MONOCYTES PERCENT MAN 3 % (4-13); MYELOCYTE ABSOLUTE MAN 0.16 K/mm3 (0.00-0.00); MYELOCYTE PERCENT MAN 3 % (0-0); NEUTROPHILS ABSOLUTE MAN 4.44 K/mm3 (1.96-9.15); SEG NEUTROPHILS PERCENT MAN 31 % (41-73)
[2024-12-08] MEDS ORDERED: Sodium Bicarb 8.4% 1 MEQ/ML 50 ML Vial IV ONE (05:00)
[2024-12-08] MEDS ORDERED: CALCIUM GLUC IN NACL, ISO-OSM 50 ML IV ONE (05:00)
--- NOTE | 2024-12-08 06:23 | NUR ---
SHIFT SUMMARY: NO ACUTE CHANGES OVERNIGHT; VSS THROUGHOUT THE SHIFT. PT REMAINS INTUBATED, NO CHANGES TO VENR SETTINGS. LEVO @ 16 MCG, VASO @ 0.04 UNITS, PROPOFOL @ 45 MCG AND BICARB @ 75 MLS/HR. PT RAAS -3 TO -4. BILATERAL NEPHROSTOMY TUBES IN PLACE, SUTURED IN AND DRESSING C/D/I; LEFT NEPHROSTOMY TUBE HAD 100 MLS URINE OUTPUT, RIGHT NEPHROSTOMY TUBE AT 200 MLS URINE OUTPUT. < 25 MLS OF OUTPUT FROM OGT. TEMP DOWN TO 98.2. WILL REPORT OFF TO ONCOMING RN.
--- NOTE | 2024-12-08 08:02 | NUR ---
AM NOTE... ASSUMED CARE OF PT AT 0700, PT IS INTUBATED AND SEDATED, PROPOFOL IS RUNNING AT 45MCG/KG WITH A RASS OF -2. VENT SETTINGS ARE AC/VC: 16/460/5/35% WITH O2 SATS>95%. L/S ARE CLEAR AND DIM IN THE UPPER/MID LOBES, DIM IN THE BILATERAL LOWER LOBES. RR 20'S-30'S. ET TUBE IS 8.0 AND 25 AT THE TEETH. PT IS IN SR IN THE 80'S, LEVOPHED AT 14MCG/MIN TO KEEP MAPS>65. PT HAS 2+ EDEMA TO HIS BUE AND TRACE TO HIS BLE. NO CHANGE NOTED TO THE RED RAISED RASH ON HIS TRUNK AND ALL EXTREMITIES. OG TUBE IS SET TO LIS WITH SCANT DARK BROWN/BLACK CONTENTS. BT ARE PRESENT AND HYPOACTIVE. BILATERAL NEPHROSTOMY TUBES PRESENT AND DRAINING YELLOW URINE WITH A SMALL AMOUNT OF SEDIMENT.
[2024-12-08] MEDS ORDERED: Sodium Bicarb 8.4% Inj 150 MEQ in Dextrose 5% 1,000 ML IV SCH (09:40)
--- NOTE | 2024-12-08 10:16 | NUR ---
BAG CHANGED... AT 1000 LEFT NEPHROSTOMY BAG WAS CHANGED D/T TUBING LEAKING AT CONNECTION SITE.
--- NOTE | 2024-12-08 10:54 | NUR ---
UPDATE.... PT CHANGED OVER FROM AC/VC TO SP 12/5 AND 35% WITH O2 SATS>95% AND TV>350. PROPOFOL DECREASED FROM 45MCG/KG TO 10MCG/KG AT 1015 AND STOPPED AT 1050. PT WILL MOVE HIS HEAD AND ATTEMPT TO OPEN HIS EYES TO VERBAL STIMULI.
[2024-12-08 11:47] LABS: Vancomycin, Random 22.6 ug/mL
[2024-12-08] MEDS ORDERED: DiphenhydrAMINE HCl 50 MG/ML 1ML Vial IV ONE (14:15)
--- NOTE | 2024-12-08 14:17 | NUR ---
UPDATE.... THE PT'S LEFT NEPHROSTOMY TUBING IS NOTED TO BE LEAKING AGAIN, PROVIDER NOTIFIED.
[2024-12-08 17:59] LABS: Anion Gap 15.0 mmol/L (3-11); Blood Urea Nitrogen 75.0 mg/dL (8-24); CO2, Blood 23.0 mmol/L (21-32); Calcium, Blood 6.3 mg/dL (8.5-10.1); Chloride, Blood 109.0 mmol/L (98-108); Creatinine, Blood 2.77 mg/dL (0.60-1.20); Glucose, Blood 127.0 mg/dL (70-99); Potassium, Blood 3.9 mmol/L (3.5-5.5); Sodium, Blood 143.0 mmol/L (136-145)
--- NOTE | 2024-12-08 18:25 | NUR ---
SHIFT SUMMARY.... PT CONTINUES TO BE ON SP 12/ AND 35% WITH O2 SATS>95%. PT WAS ABLE TO OPEN EYES AND TRACK DURING THE SEDATION VACATION BUT NOT FOLLOW COMMANDS. PROPOFOL IS RUNNING AT 25MCG/KG WITH A RASS OF -1 TO -2. LEVOPHED IS AT 10MCG/MIN TO KEEP MAPS>65, VASOPRESSIN IS ON STANDBY. BICARB GTT IS RUNNING AT 75MLS/HR. OG TUBE HAS HAD SCANT <20MLS OF DARK BILE/GASTRIC CONTENTS THIS SHIFT. THE PT'S LEFT NERPHROSTOMY TUBING HAS BEEN LEAKING T/O THIS SHIFT, PROVIDER IS AWARE. PT HAS HAD 3BMS THIS SHIFT. THE PT'S RASH HAS HAD NO CHANGE, A WATER BLISTER WAS NOTED TO THE PT'S LOWER BACK THIS SHIFT, PICTURES IN THE CHART AND PROVIDER IS AWARE. PLANS TO CONSULT DERMATOLOGY TOMORROW. THE PT'S BROTHER ARRIVED AT THE BEDSIDE THIS AFTERNOON, BOTH THE BROTHER AND MOTHER WERE UPDATED BY DR. VASQUEZ.
--- NOTE | 2024-12-08 19:50 | NUR ---
ASSUMPTION OF CARE/ASSESSMENT: ASSUMED CARE OF PT AT 1900; BEDSIDE SHIFT REPORT RECIEVED FROM JONY CANSECO. PT REMAINS INTUBATED AND SEDATED. PT RAAS -2 TO -3, ATTEMPTS TO OPEN EYES TO VERBAL STIMULI BUT NOT ABLE TO FOLLOW COMMANDS AT THIS TIME. PROPOFOL GTT @ 25 MCG/KG/HR. VENT SETTINGS SPONT. 12/5, FIO2 35%, TV 450-550, AND RATE 20-30. SPO2 94< AND LUNGES CLEAR WITH DIM BASES. SR ON MONITOR WITH HR 80-90'S, SBP 100'S AND MAP 65<; LEVO GTT @ 10 MCG/MIN, VASO ON SB. PT HAS OGT TO LIS WITH SMALL AMOUNTS OF BROWN, COFFEE-GROUND OUTPUT, BT HYPOACTIVE. BILATERAL NEPHROSTOMY TUBES SUTURED IN PLACE; LEFO NEPHROSTOMY LEAKING THROUGHOUT DAYSHIFT, INSERTION SITE SECURED, TUBING WRAPPED WITH ABSORBENT PAD. AFEBRILE AT THIS TIME. DIFFUSE RED RASH OVER ENTIRE BODY; FEET WITH DARK PURPLE DOTS NOTED; ELECTRONIC FIELD SERVICE ENGINEER BY TO ASSESS PT ON DAYSHIFT AND WILL BE FOLLOWING THE CASE. RIJ PATENT AND INFUSING DRIPS AND BICARB@ 75 MLS/ HR
[2024-12-08 21:08] LABS: Vancomycin, Random 22.4 ug/mL
[2024-12-09] VITALS (88 sets, daily range): BP systolic 62–119; BP diastolic 44–87
[2024-12-09 03:54] LABS: Hematocrit 23.6 % (37.0-53.0); Hemoglobin 7.9 g/dL (13.5-17.5); Mean Corpuscular HGB Conc 33.5 g/dL (31.5-36.5); Mean Corpuscular Volume 81 fL (80-100); NRBC ABSOLUTE 0.40 K/mm3 (0.00-0.02); NRBC Auto 6.8 /100 WBC (0.0-0.2); Platelet Count 59 K/mm3 (150-400); RDW Coefficient Variation 18.4 % (11.7-14.2); RDW Standard Deviation 53.8 fL (35.1-46.3)
[2024-12-09 04:31] LABS: Anion Gap 15 mmol/L (3-11); Blood Urea Nitrogen 81 mg/dL (8-24); CO2, Blood 24 mmol/L (21-32); Calcium, Blood 6.3 mg/dL (8.5-10.1); Chloride, Blood 108 mmol/L (98-108); Creatinine, Blood 2.67 mg/dL (0.60-1.20); Glucose, Blood 122 mg/dL (70-99); Magnesium, Blood 1.8 mg/dL (1.6-2.4); Phosphorus, Blood 6.2 mg/dL (2.5-4.9); Potassium, Blood 3.8 mmol/L (3.5-5.5); Sodium, Blood 143 mmol/L (136-145); Vancomycin, Random 19.4 ug/mL
[2024-12-09 04:43] LABS: BAND PERCENT MAN 27 % (0-8); BASOPHILS ABSOLUTE MAN 0.05 K/mm3 (0.00-0.23); BASOPHILS PERCENT MAN 1 % (0-2); EOSINOPHILS ABSOLUTE MAN 0.00 K/mm3 (0.00-0.68); EOSINOPHILS PERCENT MAN 0 % (0-6); LYMPHOCYTES % ATYPICAL MANUAL 1 % (0-0); LYMPHOCYTES ABSOLUTE MAN 1.17 K/mm3 (0.84-5.20); LYMPHOCYTES PERCENT MAN 19 % (21-46); METAMYELOCYTE ABSOLUTE MAN 0.05 K/mm3 (0.00-0.00); METAMYELOCYTE PERCENT MAN 1 % (0-0); MONOCYTES ABSOLUTE MAN 0.29 K/mm3 (0.16-1.47); MONOCYTES PERCENT MAN 5 % (4-13); MYELOCYTE ABSOLUTE MAN 0.41 K/mm3 (0.00-0.00); MYELOCYTE PERCENT MAN 7 % (0-0); NEUTROPHILS ABSOLUTE MAN 3.82 K/mm3 (1.96-9.15); PLASMA CELL ABSOLUTE MAN 0.05 K/mm3 (0.00-0.00); PLASMA CELLS PERCENT MAN 1 % (0-0); SEG NEUTROPHILS PERCENT MAN 38 % (41-73)
--- NOTE | 2024-12-09 06:21 | NUR ---
SHIFT SUMMARY: NO ACUTE CHANGES OVERNIGHT, VSS THROUGHOUT THE SHIFT. PT SWITCHED OVER TO AC/VC 16/460/5/35% @ 0200. PT REMAINS ON PROPOFOL @ 25 MCG, LEVO GTT @ 8 MCG AND BICARB @ 75 MLS/HR. R. NEPHROSTOMY TUBE LEAKING THIS SHIFT, DRESSING INTACT, DRYFLOW PLACED. TEMP RISING, FAN TURNED ON. WILL REPORT OFF TO ONCOMING RN.
[2024-12-09] MEDS ORDERED: CALCIUM GLUC IN NACL, ISO-OSM 50 ML IV ONE (06:45)
--- NOTE | 2024-12-09 10:00 | NUR ---
SPONTANEOUS BREATHING TRIAL. PROPOFOL STOPPED AT 0900. PT TOLERATING WELL. PT VENT SETTINGS CHANGED TO SPONTANEOUS BY RESP THERAPY. CURRENT SETTINGS. 12/18 AT 35%, TOLERATING WELL. TV 350-475. RR 22-37. PRN PAIN MEDICATION USED TO TREAT PAIN. B/P STABLE ON LEVOPHED AT 8.
--- NOTE | 2024-12-09 14:30 | NUR ---
LEVOPHED PLACED ON STAND BY. PT REMAINS IN SR HR 80-90S. SBP STABLE AND MAP >65. PROPOFOL REMAINS OFF. PLAN TO REPEAT H+H AT 1600. PLANNING TO START TUBE FEED THIS AFTERNOON. PT NOT CONSISTENTLY FOLLOWING COMMANDS RASS -2. REMAINS ON SPONTANEOUS VENT SETTINGS. DERMATOLOGY AT BEDSIDE TO EXAMINE RASH. RASH APPEARS SOMEWHAT BETTER THAN YESTERDAY, TRIAMCINALONE APPLIED THIS AM. CONSULT PLACED FOR UROLOGY FOR EVAL PT HAS HEAVY SEDIMENT FROM L NEPH AND LEAKAGE FROM SITE. CALLED ANSWERING SERVICE AND LEFT A MESSAGE WITH EMPLOYEE FOR DR Rachell MCCULLOUGH.
[2024-12-09 16:26] LABS: Hematocrit 22.9 % (37.0-53.0); Hemoglobin 7.4 g/dL (13.5-17.5)
--- NOTE | 2024-12-09 18:48 | NUR ---
SHIFT SUMMARY NEURO: RASS -2. SEDATION TRIAL TODAY FROM [id number], PT TOLERATED WELL. REMAINED RASS -1/-2 WHILE OFF OF SEDATION BUT UNABLE TO CONSISTENTLY FOLLOW COMMANDS AND DROWSY. PT HAD VISIBLE AGITATION EVIDENCE BY FREQUENT MOVING IN BED AND INCREASED RR. SEDATION RESTARTED AT 1600 AND LEVO CONCURRENTLY RESTARTED WELL. PROPOFOL AT 20MCG/KG/MIN AND LEVO AT 4MCG/MIN. CARDIAC: SEE ABOVE, LEVO OFF FROM [id number]. RESTART WHEN PT SEDATION RESTARTED. PT REMAINS 8L+ I/O. SODIUM BICARB WAS STOPPED TODAY PER DR WORTHINGTON. HE REMAINS IN SR. SBP 90-100S TITRATING LEVO TO MAINTAIN MAP >65. PULM: LUNGS CLEAR/DIM. SOME WHITE THICK SECREATIONS. SPONTANEOUS VENT SETTINGS THIS AM 10/5 AT 35%. SWITCHED BACK TO ACVC 16/460/35/5 THIS EVENING AFTER RESTARTING SEDATION. GI: 2 BM TODAY, BROWN IN COLOR. OG TO LIS THIS AM ONLY 25 OUT, BROWN IN COLOR. STARTED TF TODAY NEPRO AT 20ML/HR WITH GOAL OF 30ML/HR. : BILAT NEPH TUBES APPEAR TO BE LEAKING ON WHICHEVER SIDE PT IS TURNED. L WORSE THAN RIGHT. URINE APPEARS CLEAR/YELLOW ON R AND YELLOW/SEDIMENTED ON LEFT. VARYING OUTPUT THROUGH OUT THE DAY. SKIN: RED MACROPAPULAR RASH, DERM SAW TODAY. SEEMS SLIGHTLY IMPROVED FROM YESTERDAY PER DERM.
--- NOTE | 2024-12-09 22:53 | NUR ---
ASSUMPTION OF CARE NOTE: ASSUMED CARE OF PT AT 1900 PT REMAINS INTUBATED AND SEDATED WITH PROPOFOL AND LEVO INFUSING TO PATENT RIJ. PT HAS BILATERAL NEPHRO TUBES AND YELLOW URINE IN BAGS. PT HAS CONTINUES FEEDS AT 20ML/HR AND GOAL IS AT 30ML/HR. PT HAS A RASS SCORE OF -2 AND WILL BE AROUSABLE BUT SLEEPY TO VOICES AND STIMULI BUT DOES NOT FOLLOW COMMANDS SUCH SQUEEZING HANDS BUT WILL OPEN EYES AND LOOK AT YOU FOR SHORT MOMENTS. PT'S SKIN IS DRY AND RED. PT HAS PATENT OG TUBE. SBP IN 100'S AND HR IN 80'S. SPO2 >92%. BED LOW AND LOCKED FOR SAFETY
[2024-12-10] VITALS (53 sets, daily range): BP systolic 64–106; BP diastolic 28–79
[2024-12-10 03:44] LABS: Hematocrit 23.1 % (37.0-53.0); Hemoglobin 7.4 g/dL (13.5-17.5); Mean Corpuscular HGB Conc 32.0 g/dL (31.5-36.5); Mean Corpuscular Volume 83 fL (80-100); NRBC ABSOLUTE 0.52 K/mm3 (0.00-0.02); NRBC Auto 8.4 /100 WBC (0.0-0.2); RDW Coefficient Variation 18.4 % (11.7-14.2); RDW Standard Deviation 55.0 fL (35.1-46.3)
[2024-12-10 03:52] LABS: Platelet Count 34 K/mm3 (150-400)
[2024-12-10 03:59] LABS: Anion Gap 13.0 mmol/L (3-11); Blood Urea Nitrogen 81.0 mg/dL (8-24); CO2, Blood 26.0 mmol/L (21-32); Calcium, Blood 6.6 mg/dL (8.5-10.1); Chloride, Blood 111.0 mmol/L (98-108); Creatinine, Blood 2.43 mg/dL (0.60-1.20); Glucose, Blood 107.0 mg/dL (70-99); Magnesium, Blood 2.1 mg/dL (1.6-2.4); Phosphorus, Blood 6.2 mg/dL (2.5-4.9); Potassium, Blood 3.1 mmol/L (3.5-5.5); Sodium, Blood 147.0 mmol/L (136-145)
[2024-12-10] MEDS ORDERED: Calcium Gluconate 10% 1,000 MG in NS 50 ML IV ONE (04:30)
[2024-12-10 04:44] LABS: BAND PERCENT MAN 45 % (0-8); BASOPHILS ABSOLUTE MAN 0.06 K/mm3 (0.00-0.23); BASOPHILS PERCENT MAN 1 % (0-2); EOSINOPHILS ABSOLUTE MAN 0.00 K/mm3 (0.00-0.68); EOSINOPHILS PERCENT MAN 0 % (0-6); LYMPHOCYTES ABSOLUTE MAN 0.93 K/mm3 (0.84-5.20); LYMPHOCYTES PERCENT MAN 15 % (21-46); METAMYELOCYTE ABSOLUTE MAN 0.18 K/mm3 (0.00-0.00); METAMYELOCYTE PERCENT MAN 3 % (0-0); MONOCYTES ABSOLUTE MAN 0.49 K/mm3 (0.16-1.47); MONOCYTES PERCENT MAN 8 % (4-13); MYELOCYTE ABSOLUTE MAN 0.18 K/mm3 (0.00-0.00); MYELOCYTE PERCENT MAN 3 % (0-0); NEUTROPHILS ABSOLUTE MAN 4.29 K/mm3 (1.96-9.15); OTHER CELL PERCENT MAN 1 % (0-0); SEG NEUTROPHILS PERCENT MAN 24 % (41-73)
--- NOTE | 2024-12-10 05:30 | NUR ---
SHIFT SUMMARY: PT REMAINS INTUBATED AND SEDATED, RASS -2 TO -3, PROPOFOL AT 20 MCG/KG/MIN. SBP 90-100s, MAP>65. LEVOPHED ON SB THIS AM, SEE FLOWSHEET FOR TITRATIONS. MONITOR SHOWS SINUS RYTHM, RATE 80s. SPO2>90% ON VENT, SETTINGS ACVC 16/460/5/45%. FIO2 INCREASED FROM 35% DUE TO PT DESAT TO 88%. BILAT NEPHROSTOMIES IN PLACE MORE OUTPUT IN RT THAN LEFT, BOTH LEAKING, RT LEAKING MORE. OGT PATENT INFUSING TF AT GOAL. PT HAD SEVERAL BMs T/O THE NIGHT, BROWN. PT HAS RED RASH T/O BODY, SEEMS IMPROVED FROM START OF SHIFT. WILL REPORT TO ONCOMING. RN.
[2024-12-10] MEDS ORDERED: CALCIUM GLUC IN NACL, ISO-OSM 50 ML IV ONE (06:05)
--- NOTE | 2024-12-10 10:25 | NUR ---
VIRI,RT IN TO LIBERATE PATIENT FROM VENTILATOR. AWAKE AND FOLLOWING CONVERSATION. LIBERATED AT 1033, LOTS OF SECRETIONS, BROWN, BLOOD TINGED IN MOUTH. GOOD COUGH.
--- NOTE | 2024-12-10 11:03 | NUR ---
PT EXTUBATED AT APPOX 1030. CURRENTLY ON 7LPM OF O2. MODERATE THICK WHITE/YELLOW BLOOD TINGED SECRETIONS. SPUTUM SAMPLE COLLECTED PER ORDER. SBP 80-90S MAP >65.
[2024-12-10 16:36] LABS: Hematocrit 24.7 % (37.0-53.0); Hemoglobin 7.8 g/dL (13.5-17.5)
--- NOTE | 2024-12-10 18:47 | NUR ---
SHIFT SUMMARY NEURO: ALERT AND ORIENTED X SELF, PERSON AND PLACE. DISORIENTED TO SITUATION AND TIME. GENERALIZED WEAKNESS TO ALL EXTREMITIES. FOLLOWING COMMANDS. CARDIAC: SR, HR 70-80S. SBP 90-100S MAP >65. DID NOT REQUIRE ANY PRESSOR SUPPORT TODAY. PULM: CLEAR/DIM BASES TO AUSCLUATION. ON 5LPM VIA NC, THICK WHITE/YELLOW RED TINGED. DUE TO ORAL INJURIES TO BILAT INNER CHEEKS. WEAK SWALLOW TO START NOW IMPROVED. GI: + DIARRHEA, BROWN IN COLOR, NORMOACTIVE BOWEL TONES. RECTAL BAG PLACED SURROUNDING RECTUM, NO RECTAL TUBE DUE TO PLATELET COUNT. : NEPH TUBES DRAINING BILAT, SOME LEAKAGE FROM R NEPH. SPOKE WITH UROLOGY DR GONZAELZ REGARDING SEDIMENT AND LEAKING FROM R/L NEPH. SHE STATED LONG THEY ARE DRAINING NO NEED TO FLUSH OR ADJUST AT THIS POINT BUT TO CONTACT HER IF THE TUBES FAIL TO DRAIN ANY URINE. SKIN DIFFUSE RASH IMPROVING DR WALTON IN TO SEE PT THIS EVENING, CONT CURRENT TX PLAN. FAMILY INTO VISIT SISTER AND MOM, UPDATED ON PT CONDITION.
--- NOTE | 2024-12-10 20:00 | NUR ---
ASSUMPTION OF CARE CARE OF PT ASSUMED FOLLOWING BEDSIDE SHIFT REPORT FROM DAY RN. PT LYING IN BED IN NO APPARENT DISTRESS. ALERT AND ORIENTED TO SELF, PERSON AND PLACE THOUGH NOT TIME AND SITUATION. AFEBRILE. PT DENIES PAIN. MOVES EXTREMITIES WITH DIFFICULTY. SINUS RHYTHM IN THE 70'S WITH STABLE BP. PT DENIES CHEST PAIN/PRESSUE OR SOB. PT ON 5L HFNC WITH SAT > 92%. PT HAS WEAK COUGH WHICH HE IS ENCOURAGED TO DO; SUCTION IN HAND. PT HAS BLISTERED LIPS AND BLISTER ON THE ROOF OF MOUTH AND IN BOTH CHEEKS- WILL MONITOR. RECTAL BAG IN PLACE AND DRAINING BROWN LIQUID/LOOSE STOOL TO GRAVITY. BILATERAL NEPHRO TUBES IN PLACE WITH MINOR LEAKAGE ON LEFT AND LESS OUTPUT ON THAT SIDE WELL (PROVIDERS AWARE). PT REPORTEDLY LEAKING URINE AROUND URETHRA WELL. SALINE LOCKED. SKIN IS RED ON LEGS AND ARMS. DERM HAS SEEN PT. WILL REVIEW AND CONTINUE PLAN OF CARE.
[2024-12-11] VITALS (22 sets, daily range): BP systolic 85–115; BP diastolic 58–83
[2024-12-11 03:48] LABS: Hematocrit 25.1 % (37.0-53.0); Hemoglobin 7.7 g/dL (13.5-17.5); Mean Corpuscular HGB Conc 30.7 g/dL (31.5-36.5); Mean Corpuscular Volume 85 fL (80-100); NRBC ABSOLUTE 0.77 K/mm3 (0.00-0.02); NRBC Auto 13.3 /100 WBC (0.0-0.2); RDW Coefficient Variation 18.7 % (11.7-14.2); RDW Standard Deviation 56.1 fL (35.1-46.3)
[2024-12-11 03:59] LABS: Anion Gap 12.0 mmol/L (3-11); Blood Urea Nitrogen 81.0 mg/dL (8-24); CO2, Blood 25.0 mmol/L (21-32); Calcium, Blood 7.1 mg/dL (8.5-10.1); Chloride, Blood 115.0 mmol/L (98-108); Creatinine, Blood 2.08 mg/dL (0.60-1.20); Glucose, Blood 89.0 mg/dL (70-99); Magnesium, Blood 2.1 mg/dL (1.6-2.4); Phosphorus, Blood 5.1 mg/dL (2.5-4.9); Potassium, Blood 2.8 mmol/L (3.5-5.5); Sodium, Blood 149.0 mmol/L (136-145)
[2024-12-11 04:10] LABS: Platelet Count 25 K/mm3 (150-400)
[2024-12-11 04:24] LABS: BAND PERCENT MAN 29 % (0-8); BASOPHILS ABSOLUTE MAN 0.00 K/mm3 (0.00-0.23); BASOPHILS PERCENT MAN 0 % (0-2); EOSINOPHILS ABSOLUTE MAN 0.00 K/mm3 (0.00-0.68); EOSINOPHILS PERCENT MAN 0 % (0-6); LYMPHOCYTES ABSOLUTE MAN 0.81 K/mm3 (0.84-5.20); LYMPHOCYTES PERCENT MAN 14 % (21-46); METAMYELOCYTE ABSOLUTE MAN 0.11 K/mm3 (0.00-0.00); METAMYELOCYTE PERCENT MAN 2 % (0-0); MONOCYTES ABSOLUTE MAN 0.52 K/mm3 (0.16-1.47); MONOCYTES PERCENT MAN 9 % (4-13); MYELOCYTE ABSOLUTE MAN 0.17 K/mm3 (0.00-0.00); MYELOCYTE PERCENT MAN 3 % (0-0); NEUTROPHILS ABSOLUTE MAN 4.18 K/mm3 (1.96-9.15); SEG NEUTROPHILS PERCENT MAN 43 % (41-73)
--- NOTE | 2024-12-11 06:21 | NUR ---
SHIFT SUMMARY PT LYING IN BED IN NO APPARENT DISTRESS. ALERT AND ORIENTED TO SELF, PERSON AND PLACE THOUGH NOT TIME AND SITUATION. AFEBRILE. PT HAS PAIN IN SCROTUM, LEGS AND BACK, TREATED WITH FENTANYL X 2. MOVES EXTREMITIES WITH DIFFICULTY. SINUS RHYTHM IN THE 70'S WITH STABLE BP. PT DENIES CHEST PAIN/PRESSUE OR SOB. PT ON 5L HFNC WITH SAT > 92%. PT HAS WEAK COUGH WHICH HE IS ENCOURAGED TO DO; SUCTION IN HAND. PT HAS BLISTERED LIPS AND BLISTER ON THE ROOF OF MOUTH AND IN BOTH CHEEKS. RECTAL BAG IN PLACE AND DRAINING BROWN LIQUID/LOOSE STOOL TO GRAVITY. BILATERAL NEPHRO TUBES IN PLACE WITH MINOR LEAKAGE ON LEFT AND LESS OUTPUT ON THAT SIDE WELL (PROVIDERS AWARE). PT LEAKING URINE AROUND URETHRA WELL. SALINE LOCKED. SKIN IS RED ON LEGS AND ARMS. REGGIE HAS SEEN PT. BEDSIDE SHIFT REPORT GIVEN TO ONCCHAD DAY RN.
[2024-12-11] MEDS ORDERED: Ondansetron HCl 2 MG / ML 2ML Vial IV PRN (16:00)
[2024-12-11] MEDS ORDERED: Meropenem 2,000 MG in NS 250 ML IV SCH (21:00)
--- NOTE | 2024-12-11 21:10 | NUR ---
TRANSFER MOVED PT TO ICU14 VIA BED. GEMMA (POV) NOTIFIED REGARDING TRANSFER.
[2024-12-12] VITALS (38 sets, daily range): BP systolic 85–135; BP diastolic 49–105
[2024-12-12 03:47] LABS: Hematocrit 26.1 % (37.0-53.0); Hemoglobin 7.9 g/dL (13.5-17.5); Mean Corpuscular HGB Conc 30.3 g/dL (31.5-36.5); Mean Corpuscular Volume 86 fL (80-100); NRBC ABSOLUTE 0.89 K/mm3 (0.00-0.02); NRBC Auto 12.3 /100 WBC (0.0-0.2); RDW Coefficient Variation 19.1 % (11.7-14.2); RDW Standard Deviation 58.0 fL (35.1-46.3)
[2024-12-12 03:49] LABS: Platelet Count 28 K/mm3 (150-400)
[2024-12-12 04:12] LABS: Albumin, Blood 1.5 g/dL (3.4-5.0); Anion Gap 11 mmol/L (3-11); Blood Urea Nitrogen 78 mg/dL (8-24); CO2, Blood 25 mmol/L (21-32); Calcium, Blood 7.4 mg/dL (8.5-10.1); Chloride, Blood 113 mmol/L (98-108); Creatinine, Blood 1.92 mg/dL (0.60-1.20); Glucose, Blood 93 mg/dL (70-99); Magnesium, Blood 2.1 mg/dL (1.6-2.4); Phosphorus, Blood 4.1 mg/dL (2.5-4.9); Potassium, Blood 3.0 mmol/L (3.5-5.5); Sodium, Blood 146 mmol/L (136-145)
--- NOTE | 2024-12-12 06:32 | NUR ---
SHIFT SUMMARY: PT IS DOING WELL AND RESTING IN BED. PT WAS MOVED FROM 1CU 5 TO ICU 14, ALL PT BELONGINGS AND MEDICATION WENT WITH PT TO THEIR NEW ROOM. PT IS ALERT AND FOLLOWING COMMANDS. PT DENIES ANY PAIN, CP, OR SOB AT THIS TIME. LUNG SOUNDS ARE CLEAR AND EQUAL, ON O2 @ 7LPM VIA NC AND SPO2 >90%. SINUS RYTHM WITH SBP: 90-100'S MAP >65 HR: 100'S. IV: POWERGLIDE IN RUE. BILATERALY NEPHROSTOMY TUBES IN PLACE AND DRAINING TO GRAVITY. FECAL COLLECTION BAG IN PLACE AND DRAINING TO GRAVITY. LINES, CORDS, AND TUBES PLACED OUT OF REACH. CALL LIGHT PLACED WITHIN REACH.
--- NOTE | 2024-12-12 15:49 | NUR ---
ATTEMPTED PALLIATIVE CARE VISIT: 1130: MET WITH PT TO DISCUSS GOC AND POLST. PT DECLINED VISIT. PT STATES HE DOES NOT WANT TO DISCUSS CODE STATUS. ENCOURAGED HIM TO LET HIS RN KNOW IF HE DECIDES TO TALK ABOUT GOC/POLST.
--- NOTE | 2024-12-12 19:40 | NUR ---
Assumed care of patient at 07:15, continuing care of patient after right nephrostomy tube placement. Urine received throughout shift from right nephrostomy, the left nephrostomy received minimal output (see I&O flowsheet) which is consistent with previous recording, MD aware. Patient is incontinent of urine for unmeasured amount, however, is noteworthy that protective pads are laden with urine when changed. Spoke with Dr Lion with Dermatology on the phone this morning to clarify if chlorihexidine wipes for skin care is contraindicated with rash. Per Dr Lion, there is NOT a contraindication for chlorihexidine wipes to be used. Patient remained somnolent throughout the day, easily awakened and had minimal interactions with staff, responding in one to two word replies. Brother and mother was at bedside today and was attentive to patient.
[2024-12-13] VITALS (13 sets, daily range): BP systolic 86–114; BP diastolic 53–90
[2024-12-13 04:32] LABS: Hematocrit 22.8 % (37.0-53.0); Hemoglobin 6.9 g/dL (13.5-17.5); Mean Corpuscular HGB Conc 30.3 g/dL (31.5-36.5); Mean Corpuscular Volume 87 fL (80-100); NRBC ABSOLUTE 0.42 K/mm3 (0.00-0.02); NRBC Auto 6.9 /100 WBC (0.0-0.2); RDW Coefficient Variation 19.1 % (11.7-14.2); RDW Standard Deviation 58.3 fL (35.1-46.3)
[2024-12-13 04:40] LABS: Platelet Count 34 K/mm3 (150-400)
[2024-12-13 04:47] LABS: Alanine Aminotransfer (ALT/SGP 56.0 U/L (12-78); Albumin, Blood 1.3 g/dL (3.4-5.0); Albumin/Globulin Ratio 0.4 (0.8-1.8); Anion Gap 9.0 mmol/L (3-11); Aspartate Aminotrans (AST/SGOT 192.0 U/L (12-37); Bilirubin, Total 0.7 mg/dL (0.1-1.0); Blood Urea Nitrogen 77.0 mg/dL (8-24); CO2, Blood 26.0 mmol/L (21-32); Calcium, Blood 8.0 mg/dL (8.5-10.1); Chloride, Blood 119.0 mmol/L (98-108); Creatinine, Blood 1.94 mg/dL (0.60-1.20); Globulin, Blood 3.3 g/dL (2.2-4.0); Glucose, Blood 127.0 mg/dL (70-99); Potassium, Blood 3.0 mmol/L (3.5-5.5); Sodium, Blood 151.0 mmol/L (136-145); Total Protein, Blood 4.6 g/dL (6.4-8.2)
[2024-12-13] MEDS ORDERED: Potassium Chl 20MEQ/Water100ML 100 ML IV ONE (05:10)
[2024-12-13 05:11] LABS: BAND PERCENT MAN 11 % (0-8); BASOPHILS ABSOLUTE MAN 0.06 K/mm3 (0.00-0.23); BASOPHILS PERCENT MAN 1 % (0-2); EOSINOPHILS ABSOLUTE MAN 0.24 K/mm3 (0.00-0.68); EOSINOPHILS PERCENT MAN 4 % (0-6); LYMPHOCYTES ABSOLUTE MAN 1.90 K/mm3 (0.84-5.20); LYMPHOCYTES PERCENT MAN 31 % (21-46); METAMYELOCYTE ABSOLUTE MAN 0.06 K/mm3 (0.00-0.00); METAMYELOCYTE PERCENT MAN 1 % (0-0); MONOCYTES ABSOLUTE MAN 0.42 K/mm3 (0.16-1.47); MONOCYTES PERCENT MAN 7 % (4-13); MYELOCYTE ABSOLUTE MAN 0.24 K/mm3 (0.00-0.00); MYELOCYTE PERCENT MAN 4 % (0-0); NEUTROPHILS ABSOLUTE MAN 3.18 K/mm3 (1.96-9.15); SEG NEUTROPHILS PERCENT MAN 41 % (41-73)
[2024-12-13] MEDS ORDERED: NS 500 ML IV SCH (05:55)
[2024-12-13 10:48] LABS: Hematocrit 27.6 % (37.0-53.0); Hemoglobin 8.7 g/dL (13.5-17.5)
[2024-12-13 16:56] LABS: Hematocrit 26.0 % (37.0-53.0); Hemoglobin 8.2 g/dL (13.5-17.5)
[2024-12-13 17:18] LABS: Anion Gap 8.0 mmol/L (3-11); Blood Urea Nitrogen 71.0 mg/dL (8-24); CO2, Blood 26.0 mmol/L (21-32); Calcium, Blood 8.2 mg/dL (8.5-10.1); Chloride, Blood 118.0 mmol/L (98-108); Creatinine, Blood 1.91 mg/dL (0.60-1.20); Glucose, Blood 133.0 mg/dL (70-99); Potassium, Blood 3.4 mmol/L (3.5-5.5); Sodium, Blood 149.0 mmol/L (136-145)
--- NOTE | 2024-12-13 20:16 | NUR ---
Assumed care of patient at 07:15. On morning exam noted patient was more alert than the previous day and more interactive speaking in complete sentences and proactively engaging in letting his needs be known. Patient was off the floor to CT from 11:30 to 11:50 for left nephrostomy placement verification. Spoke with Dr Aldana who informed me that the placement is correct and directed for nurse to flush tube with 10ml of NS. Flushed tube 14:25 as directed. Did not receive a flow of urine after the flush and only was able to account for 5 ml of urine which had been residing in tube up to this point. Dr Pope had come by the bedside shortly after tube was flushed and he was updated on the absence of urine flow after the flush. Was able to speak to Dr Hatfield concerning this during his bedside rounds of the patient at 18:30. Dr Hatfield suggested attempting to flush 2ml towards the nephrostomy tube and see if there is resistance. While Dr Hatfield was at bedside did attempt to flush toward the nephrostomy tube and immediately felt resistance and immediately stopped attempt to initiate flow. See lab results for other workups and interventions which included flow up post PRBC transfusion, guaiac sample sent, urine studies and interventions for elevated sodium which included D5W infusion per MD orders. Also see MD notes for further detail. Did also encourage free water intake for sodium. See I&O flowsheet.
[2024-12-13] MEDS ORDERED: Prochlorperazine Edisylate 10 mg Vial IV PRN (23:45)
[2024-12-14] VITALS (13 sets, daily range): BP systolic 74–114; BP diastolic 48–70
[2024-12-14 03:40] LABS: Hematocrit 23.4 % (37.0-53.0); Hemoglobin 7.5 g/dL (13.5-17.5); Mean Corpuscular HGB Conc 32.1 g/dL (31.5-36.5); Mean Corpuscular Volume 85 fL (80-100); NRBC ABSOLUTE 0.36 K/mm3 (0.00-0.02); NRBC Auto 5.6 /100 WBC (0.0-0.2); RDW Coefficient Variation 19.2 % (11.7-14.2); RDW Standard Deviation 55.9 fL (35.1-46.3)
[2024-12-14 03:44] LABS: Platelet Count 42 K/mm3 (150-400)
[2024-12-14 04:05] LABS: Alanine Aminotransfer (ALT/SGP 55.0 U/L (12-78); Albumin, Blood 1.3 g/dL (3.4-5.0); Albumin/Globulin Ratio 0.4 (0.8-1.8); Anion Gap 9.0 mmol/L (3-11); Aspartate Aminotrans (AST/SGOT 168.0 U/L (12-37); Bilirubin, Total 0.8 mg/dL (0.1-1.0); Blood Urea Nitrogen 66.0 mg/dL (8-24); CO2, Blood 26.0 mmol/L (21-32); Calcium, Blood 8.7 mg/dL (8.5-10.1); Chloride, Blood 115.0 mmol/L (98-108); Creatinine, Blood 1.67 mg/dL (0.60-1.20); Globulin, Blood 3.4 g/dL (2.2-4.0); Glucose, Blood 109.0 mg/dL (70-99); Potassium, Blood 3.7 mmol/L (3.5-5.5); Sodium, Blood 146.0 mmol/L (136-145); Total Protein, Blood 4.7 g/dL (6.4-8.2)
[2024-12-14 04:32] LABS: BAND PERCENT MAN 11 % (0-8); BASOPHILS ABSOLUTE MAN 0.00 K/mm3 (0.00-0.23); BASOPHILS PERCENT MAN 0 % (0-2); EOSINOPHILS ABSOLUTE MAN 0.00 K/mm3 (0.00-0.68); EOSINOPHILS PERCENT MAN 0 % (0-6); LYMPHOCYTES ABSOLUTE MAN 1.98 K/mm3 (0.84-5.20); LYMPHOCYTES PERCENT MAN 31 % (21-46); METAMYELOCYTE ABSOLUTE MAN 0.12 K/mm3 (0.00-0.00); METAMYELOCYTE PERCENT MAN 2 % (0-0); MONOCYTES ABSOLUTE MAN 0.96 K/mm3 (0.16-1.47); MONOCYTES PERCENT MAN 15 % (4-13); MYELOCYTE ABSOLUTE MAN 0.12 K/mm3 (0.00-0.00); MYELOCYTE PERCENT MAN 2 % (0-0); NEUTROPHILS ABSOLUTE MAN 3.20 K/mm3 (1.96-9.15); SEG NEUTROPHILS PERCENT MAN 39 % (41-73)
--- NOTE | 2024-12-14 04:59 | NUR ---
SHIFT SUMMARY PT A/OX4, SLOW TO RESPOND AT TIMES. MAKES NEEDS KNOWN AND CALLS APPROPRIATLY. HR ST T/O SHIFT 110-120'S, MAPS > 65. DENIES CP. PT IS ON 10L OXYMASK, SATS FLUCTUATE BETWEEN 88-94%. DENIES SOB. TACHYPNEIC. RT RECOMMENDED HEATED HIGH FLOW FOR PT R/T DESATTING INTO 80'S, RT TO SET THAT UP THIS MORNING. TOLERATING PO INTAKE, DRANK WATER AND ENSURE T/O THE NIGHT. PT HAS BILAT NEPHROSTOMIES, R ONE HAS HAD A LOT OF OUTPUT, L ONE HAS NOT HAD ANY. PROVIDER AWARE OF THIS. RECTAL POUCH CHANGED THIS SHIFT. NO SIGNIFICANT CHNAGES T/O SHIFT. CALL LIGHT IN REACH.
[2024-12-14 09:16] LABS: pH Blood Venous 7.50 (7.34-7.37)
[2024-12-14 09:40] LABS: Stool Occult Blood Guaiac 1 Neg (Neg)
[2024-12-14 15:48] LABS: Anion Gap 9.0 mmol/L (3-11); Blood Urea Nitrogen 66.0 mg/dL (8-24); CO2, Blood 28.0 mmol/L (21-32); Calcium, Blood 9.3 mg/dL (8.5-10.1); Chloride, Blood 115.0 mmol/L (98-108); Creatinine, Blood 1.92 mg/dL (0.60-1.20); Glucose, Blood 112.0 mg/dL (70-99); Potassium, Blood 3.5 mmol/L (3.5-5.5); Sodium, Blood 148.0 mmol/L (136-145)
--- NOTE | 2024-12-14 18:54 | NUR ---
SHIFT SUMMARY NEURO: ALERT AND ORIENTED X4. ABLE TO MAKE HIS NEEDS KNOWN AND CALLS APPROPRIATELY. MOVING ALL EXTERMITITES, GENERALIZED WEAKNESS. CARDIAC: SINUS TACH, HR 100-120S. SBP 90S-110S. DENIES ANY CP, +SOB. PULM: INCREAESE IN O2 NEEDS THIS AM. STARTED ON AIRVO AT 55L/ 58% MOST OF THE DAY. REDUCED TO 45L/ 45% FOR APPROX 1.5HR. PT DESAT AND SETTINGS INCREASED TO 45L/55%. MAINTAINING SPO2 >95% C/O SOB THROUGH OUT THE DAY, INCREASED WOB THIS AM AND NOW THIS EVENING. UPPER LOBES CLEAR, RML COARSE, WITH BIBASILAR CRACKLES. CT CHEST COMPLETED TODAY WELL VBG. GI: DIARRHEA, D/C RECTAL BAG TODAY DUE TO IRRITATION, SMALL STG 2 TO BUTTOCK. MEPLIEX FOAM PLACED ON WOUND. BARRIER CREAM PLACED WITH EACH ATTENDS CHANGE. : IR IN TO CLEAR BLOCKAGE TO L NEPH, FREE FLOWING URINE NOW W/ GOOD OUTPUT. UPDATED POA GEMMA PT CONSENT FOR REPLACEMENT OF NEPH TOMORROW. PER IR NO NEED FOR NPO PT WILL NOT REQUIRE ANESTHESIA. PER IR [facility] ORDER FOR SKIN: RASH IMPROVING. REDNESS AND STG 2 ULCER TO BUTTOCK. MULTIPLE AREAS OF PEELING SKIN. NOTIFIED DR HOANG AT BEDSIDE PT HAD SOME VISIBLE PETECHIAE TO BILAT SHINS. PRIOR SCDS INPLACE. DISCUSSED NOT TO PLACE TODAY.
--- NOTE | 2024-12-14 19:51 | NUR ---
ASSUMTPION OF CARE: ASSUMED CARE AT START OF SHIFT (1899). REPORT RECEIVED FROM DAY SHIFT RN. PT IS DOING WELL AND RESTING IN BED. PT IS ALERT AND FOLLOWING COMMANDS. PT DENIES ANY PAIN, CP, OR SOB AT THIS TIME. LUNG SOUNDS ARE CLEAR IN THE UPPER CERON BUT CRACKLES ARE NOTED IN THE BASES BILATERALLY. ON AIRVO @ 46L 55%. SPO2 >95%. SINUS TACH WITH SBP: 100'S MAP >65 HR: 100-110'S. IV: POWERGLIDE IN RUE. BILATERAL NEPHROSOTOMY TUBES IN PLACE AND DRAINING TO GRAVITY. MALE PUREWICK IN PLACE AND CONNECTED TO CONIOTUOUS SUCTION. LINES AND CORDS PLACED OUT OF REACH. CALL LIGHT PLACED WITHIN REACH.
[2024-12-14] MEDS ORDERED: Petrolatum/Mineral Oil/Lanolin 1 APPLIC/50 GM Tube TOP SCH (21:00)
[2024-12-15] VITALS (55 sets, daily range): BP systolic 73–129; BP diastolic 43–77
[2024-12-15 03:49] LABS: Hematocrit 24.9 % (37.0-53.0); Hemoglobin 7.6 g/dL (13.5-17.5); Mean Corpuscular HGB Conc 30.5 g/dL (31.5-36.5); Mean Corpuscular Volume 88 fL (80-100); NRBC ABSOLUTE 0.34 K/mm3 (0.00-0.02); NRBC Auto 5.1 /100 WBC (0.0-0.2); RDW Coefficient Variation 19.5 % (11.7-14.2); RDW Standard Deviation 59.5 fL (35.1-46.3)
[2024-12-15 03:55] LABS: Platelet Count 50 K/mm3 (150-400)
[2024-12-15 04:03] LABS: Anion Gap 8.0 mmol/L (3-11); Blood Urea Nitrogen 69.0 mg/dL (8-24); CO2, Blood 29.0 mmol/L (21-32); Calcium, Blood 9.1 mg/dL (8.5-10.1); Chloride, Blood 117.0 mmol/L (98-108); Creatinine, Blood 1.85 mg/dL (0.60-1.20); Glucose, Blood 83.0 mg/dL (70-99); Potassium, Blood 3.8 mmol/L (3.5-5.5); Sodium, Blood 150.0 mmol/L (136-145)
[2024-12-15 04:56] LABS: BAND PERCENT MAN 17 % (0-8); BASOPHILS ABSOLUTE MAN 0.00 K/mm3 (0.00-0.23); BASOPHILS PERCENT MAN 0 % (0-2); EOSINOPHILS ABSOLUTE MAN 0.00 K/mm3 (0.00-0.68); EOSINOPHILS PERCENT MAN 0 % (0-6); LYMPHOCYTES ABSOLUTE MAN 1.54 K/mm3 (0.84-5.20); LYMPHOCYTES PERCENT MAN 23 % (21-46); METAMYELOCYTE ABSOLUTE MAN 0.13 K/mm3 (0.00-0.00); METAMYELOCYTE PERCENT MAN 2 % (0-0); MONOCYTES ABSOLUTE MAN 0.73 K/mm3 (0.16-1.47); MONOCYTES PERCENT MAN 11 % (4-13); MYELOCYTE ABSOLUTE MAN 0.13 K/mm3 (0.00-0.00); MYELOCYTE PERCENT MAN 2 % (0-0); NEUTROPHILS ABSOLUTE MAN 4.16 K/mm3 (1.96-9.15); SEG NEUTROPHILS PERCENT MAN 45 % (41-73)
--- NOTE | 2024-12-15 06:45 | NUR ---
SHIFT SUMMARY: PT IS DOING WELL AND RESTING IN BED. PT WAS ABLE TO SLEEP PART OF THE NIGHT. PT HAD A FEVVER IN TOWARDS THE START OF THE NIGHT, T-MAX OF 101.0F. PT WAS GIVEN TYLENOL PER EMR ORDERS AND TEMPERATURE REDUCED TO 99F. PT HAD EPISODE OF HICCUPS THAT LASTED 1-2 HOURS, HICCUPS STARTED AFTER PT TOOK PO MEDS WITH WATER AND SEEMED TO WORSEN WHEN PT TOOK ADDITIONAL SIPS OF WATER. ALL OTHER VITAL SIGNS REMAINED STABLED THROUGHOUT THE SHIFT. NEPHOSTOMY TUBES DRAINING TO GRAVITY. POWERGLIDE IN RUE. LINES AND CORDS PLACED OUT OF REACH. CALL LIGHT PLACED WITHIN REACH.
[2024-12-15] MEDS ORDERED: Doxycycline Hyclate 100 MG in Dextrose 5% 250 ML IV SCH (09:00)
[2024-12-15] MEDS ORDERED: NS 500 ML IV ONE (15:57)
[2024-12-15 16:03] LABS: Campylobacter Sp Not Detected (NOT DETECT); E. Coli O157 Not Detected (NOT DETECT); Enteroaggregative E. coli-EAEC Not Detected (NOT DETECT); Enteropathogenic E. coli-EPEC Not Detected (NOT DETECT); Enterotoxigenic E. coli-ETEC Not Detected (NOT DETECT); Salmonella Sp Not Detected (NOT DETECT); Shiga Toxin-prod E. coli-STEC Not Detected (NOT DETECT); Shigella/Enteroin E. coli-EIEC Not Detected (NOT DETECT); Vibrio Sp Not Detected (NOT DETECT)
[2024-12-15] MEDS ORDERED: NS 1,000 ML IV ONE (16:40)
[2024-12-15 17:02] LABS: Anion Gap 11.0 mmol/L (3-11); Blood Urea Nitrogen 67.0 mg/dL (8-24); CO2, Blood 27.0 mmol/L (21-32); Calcium, Blood 8.9 mg/dL (8.5-10.1); Chloride, Blood 113.0 mmol/L (98-108); Creatinine, Blood 2.06 mg/dL (0.60-1.20); Glucose, Blood 118.0 mg/dL (70-99); Potassium, Blood 3.4 mmol/L (3.5-5.5); Sodium, Blood 148.0 mmol/L (136-145)
--- NOTE | 2024-12-15 19:30 | NUR ---
SHIFT SUMMARY NEURO: ALERT AND ORIENTED X 3, DISORIENTED TO TIME. MOVES ALL EXTERMITIES. ABLE TO MAKE HIS NEEDS KNOWN AND CALLS APPROPRIATELY. SOMEWHAT DROWSY AFTER RETURNING FROM [facility] PHLEBOT[facility]. FEBRILE, RECTAL PROBBE PLACED. TMAX 104.4 CARDIAC: STACH, HR 100-120S SBP 80-100S MAP >65 UNTIL AFTER PT RETURNED FROM [facility] PHLEBOT[facility]. PT MAP <65 DR PARMAR AT BEDSIDE PLACED ORDERS FOR LEVOPHED. NOTIFIED DR HOANG VIA PHONE AND REVIEWED PT CONDITION AND RECENT LABS WITH BOTH PROVIDERS. PT CURRENTLY ON 4MCG/MIN LEVOPHED. THROUGH RUE POWERGLIDE, IV FLUSHES WELL WITH GOOD BLOOD RETURN. PULM: LUNGS MOSTLY CLEAR WITH OCCASIONAL EXP WHEEZE AND RALES. PT O2 DEMAND INCREASED S/P NEPH TUBE CHANGE, HE BECAME HYPOTENSIVE AND WHEN PLACED BACK ON AIRVO FROM NON REBREATHER O2 SAT 88-90 RR INCREASED TO MID 30S. CALLED RT TO BEDSIDE AND SETTINGS ADJUSTED TO 60L AT 58%. MAINTAINING O2 SAT 90-95% . GI: +DIARRHEA, NORMOACTIVE BOWEL TONES, MILD DISTENTION, SOMEWHAT FIRM, DENIES PAIN. POOR APPETITE. INSTRUMENTAL MUSIC TEACHER SAW HIM TODAY DIET UPDATED TO PUREE FOR COMFORT WITH WOB/SOB. : BILAT NEPH TUBES DRAINING, L NEPH TUBE WAS CLEAR OF BLOCKAGE YESTERDAY AND TAKEN TO RESEARCH PHLEBOTOMIST TODAY TO CHANGE THE TUBE OUT. PT PLACED ON NON REBREATHER AT 15LPM FOR PROCEDURE. URINE ALSO ARISING FROM THE URETHRA, PUREWICK IN PLACE. VERY MINIMAL UOP TODAY FROM URETHRA. SKIN: IMPROVING DERM AT BEDISDE THIS EVENING D/C TRIAMCINALONE. FAMILY TO MEET WITH PALLATIVE CARE TOMORROW TO DISCUSS GOALS OF CARE.
[2024-12-15] MEDS ORDERED: Heparin Sodium,Porcine 5,000 UNIT/0.5 ML SDV SC SCH (21:00)
[2024-12-16] VITALS (94 sets, daily range): BP systolic 81–125; BP diastolic 53–97
[2024-12-16 04:21] LABS: Hematocrit 25.6 % (37.0-53.0); Hemoglobin 7.7 g/dL (13.5-17.5); Mean Corpuscular HGB Conc 30.1 g/dL (31.5-36.5); Mean Corpuscular Volume 88 fL (80-100); NRBC ABSOLUTE 0.21 K/mm3 (0.00-0.02); NRBC Auto 4.1 /100 WBC (0.0-0.2); Platelet Count 57 K/mm3 (150-400); RDW Coefficient Variation 19.7 % (11.7-14.2); RDW Standard Deviation 60.2 fL (35.1-46.3)
[2024-12-16 04:35] LABS: Anion Gap 8.0 mmol/L (3-11); Blood Urea Nitrogen 64.0 mg/dL (8-24); CO2, Blood 29.0 mmol/L (21-32); Calcium, Blood 8.9 mg/dL (8.5-10.1); Chloride, Blood 117.0 mmol/L (98-108); Creatinine, Blood 1.94 mg/dL (0.60-1.20); Glucose, Blood 90.0 mg/dL (70-99); Potassium, Blood 3.6 mmol/L (3.5-5.5); Sodium, Blood 150.0 mmol/L (136-145)
[2024-12-16 05:14] LABS: BAND PERCENT MAN 13 % (0-8); BASOPHILS ABSOLUTE MAN 0.00 K/mm3 (0.00-0.23); BASOPHILS PERCENT MAN 0 % (0-2); EOSINOPHILS ABSOLUTE MAN 0.00 K/mm3 (0.00-0.68); EOSINOPHILS PERCENT MAN 0 % (0-6); LYMPHOCYTES ABSOLUTE MAN 0.93 K/mm3 (0.84-5.20); LYMPHOCYTES PERCENT MAN 18 % (21-46); METAMYELOCYTE ABSOLUTE MAN 0.20 K/mm3 (0.00-0.00); METAMYELOCYTE PERCENT MAN 4 % (0-0); MONOCYTES ABSOLUTE MAN 0.46 K/mm3 (0.16-1.47); MONOCYTES PERCENT MAN 9 % (4-13); MYELOCYTE ABSOLUTE MAN 0.20 K/mm3 (0.00-0.00); MYELOCYTE PERCENT MAN 4 % (0-0); NEUTROPHILS ABSOLUTE MAN 3.36 K/mm3 (1.96-9.15); SEG NEUTROPHILS PERCENT MAN 52 % (41-73)
--- NOTE | 2024-12-16 06:12 | NUR ---
SHIFT SUMMARY L NEPHROSTOMY REPLACEMENT 12.16.24; R NEPHROSTOMY REPLACEMENT 12.06.24. A&O x4, PT LETHARGIC THROUGHOUT THE NIGHT, MORE ALERT SINCE 0500, PT SLEPT WELL. FOLLOWS COMMANDS, LIMITED ROM R/T WEAKNESS. T MAX 104.9, PO TYLENOL Q4. SPO2 >92% ON AIRVO @ 60LPM @ 60% FIO2. PT DESAT c HOB FLAT/O2 REMOVAL. TACHPNEA. HR 100-120s. MAP >65, LEVOPHED INFUSING @ 4 MCG/MIN. L NEPH TUBE DRAINING PINK URINE. R NEPH TUBE DRAINING YELLOW URINE. TEMPERATURE PEACE DRAINING MIN YELLOW URINE c SOME SEDIMENT. 1 EPISODE OF DIARRHEA, ATTENDS IN USE. FULL BED CHANGE. SCROTAL PEELING SKIN DECREASING, REMAINS SWOLLEN. MEPILEX TO L BUTTOCK C/D/I, ANTICIPATED TO BE CHANGED 12.18.24. GENERALIZED PEELING OF SKIN REMAINS UNCHANGED. USE OF AQUAPHOR IMPROVING MOUTH/LIP APPEARANCE. PT DENIES PAIN. ANTICIPATED PALLATIVE CARE CONSULT c FAMILY TODAY. CALL LIGHT IN REACH, WILL REPORT TO DAY RN.
[2024-12-16 09:05] LABS: Source, Urine Nephrostomy
[2024-12-16 09:08] LABS: Color, Urine Yellow (P-Yellow); Glucose Qualitative, Urine Neg (Neg); Ketones, Urine Neg (Neg); Leukocyte Esterase, Urine 1+ (Neg); Protein, Urine 3+ (Neg); Specific Gravity, Urine 1.015 (1.003-1.022); Urobilinogen, Urine NORM (Normal)
--- NOTE | 2024-12-16 09:08 | NUR ---
[place] of Care: Care assumed at 0700hr. Patient sleeping, easily roused to verbal stimuli. Alert and oriented x4. VSS with levophed infusing at 4mcg/min, SpO2- 92-100% on Airvo 60:/60%. Denies dyspnea or SOB. Denies pain or discomfort. Appears very weak, but able to help with turning in bed, and make needs known. Bilateral Nephrostomy tubes in place, both patent and intact, draining clear yellow urine. Arndt cath also in place draining minimal amount of clear yellow/ blood-tinged urine. Central line to lt IJ patent and intact. Power-glide to RYLAN patent and intact. Minimal apatite, but tolerating PO intake without difficulty. Call light in reach. Will continue to monitor.
[2024-12-16 09:16] LABS: Bilirubin, Urine 2+ (Neg)
[2024-12-16 09:20] LABS: Red Blood Cells, Urine 50-100 /hpf (0-2)
--- NOTE | 2024-12-16 15:28 | NUR ---
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 DR. HOANG AND BEDSIDE RN ALSO PRESENT. FAMILY REPORT THE PATIENT HAS HAD A MODERATE NTELLECTUAL DISABILITY SINCE . THEY VERBALIZE CONCERN THAT THE PATIENT MAY NOT UNDERSTAND THE CONSEQUENCES OF HIS MEDICAL CHOICES. THE PATIENT APPEARS ABLE TO MAKE HIS NEEDS AND WANTS KNOWN TO HOSPITAL STAFF IN MOST INSTANCES. DR. HOANG ORDERING A COG EVAL. FAMILY VERBALIZE CONCERN REGARDING HIS FRAIL HEALTH AND UNDERLYING CANCER DIAGNOSIS. AT THIS TIME, THE PT STATES HE WANTS TO REMAIN A FULL CODE AND CONTINUE TREATMENT. AWAITING COGNITIVE EVALUATION, WILL MEET WITH FAMILY AND PATIENT AGAIN ONCE THIS IS COMPLETED.
[2024-12-16] MEDS ORDERED: DAPTOMYCIN IV SCH (16:00)
[2024-12-16] MEDS ORDERED: NS IV SCH (16:00)
--- NOTE | 2024-12-16 18:37 | NUR ---
Shift Summary: No significant changes throughout shift. Levophed gtt remained at 3-4mcg/min throughout shift, MAP's 65-80, but right at 65 when attempting to titrate levophed down. Remains drowsy at times, but able to become alert with verbal stimuli and interact with staff. Verbal convesations are simple, with mostly yes/no answers. Bilater nephrostomy tubes remain patent and intact. persistent fever throughout shift. Temp up/down from 100 to 102.5 througout most of shift, but more recently has rapidly climbed to 104. Multiple ice rags applied at this time. PRN tylenol given x2 this shift, will repeat additional dose now.
[2024-12-17] VITALS (55 sets, daily range): BP systolic 81–116; BP diastolic 51–97
[2024-12-17 05:37] LABS: Hematocrit 23.5 % (37.0-53.0); Hemoglobin 7.0 g/dL (13.5-17.5); Mean Corpuscular HGB Conc 29.8 g/dL (31.5-36.5); Mean Corpuscular Volume 88 fL (80-100); NRBC ABSOLUTE 0.26 K/mm3 (0.00-0.02); NRBC Auto 6.4 /100 WBC (0.0-0.2); Platelet Count 54 K/mm3 (150-400); RDW Coefficient Variation 19.7 % (11.7-14.2); RDW Standard Deviation 60.9 fL (35.1-46.3)
[2024-12-17 05:58] LABS: Alanine Aminotransfer (ALT/SGP 44.0 U/L (12-78); Albumin, Blood 1.3 g/dL (3.4-5.0); Albumin/Globulin Ratio 0.4 (0.8-1.8); Anion Gap 10.0 mmol/L (3-11); Aspartate Aminotrans (AST/SGOT 248.0 U/L (12-37); Bilirubin, Total 0.7 mg/dL (0.1-1.0); Blood Urea Nitrogen 72.0 mg/dL (8-24); CO2, Blood 27.0 mmol/L (21-32); Calcium, Blood 8.1 mg/dL (8.5-10.1); Chloride, Blood 114.0 mmol/L (98-108); Creatinine, Blood 2.37 mg/dL (0.60-1.20); Globulin, Blood 3.7 g/dL (2.2-4.0); Glucose, Blood 76.0 mg/dL (70-99); Potassium, Blood 3.6 mmol/L (3.5-5.5); Sodium, Blood 147.0 mmol/L (136-145); Total Protein, Blood 5.0 g/dL (6.4-8.2)
[2024-12-17 06:23] LABS: BAND PERCENT MAN 22 % (0-8); BASOPHILS ABSOLUTE MAN 0.00 K/mm3 (0.00-0.23); BASOPHILS PERCENT MAN 0 % (0-2); EOSINOPHILS ABSOLUTE MAN 0.04 K/mm3 (0.00-0.68); EOSINOPHILS PERCENT MAN 1 % (0-6); LYMPHOCYTES % ATYPICAL MANUAL 1 % (0-0); LYMPHOCYTES ABSOLUTE MAN 0.97 K/mm3 (0.84-5.20); LYMPHOCYTES PERCENT MAN 23 % (21-46); METAMYELOCYTE ABSOLUTE MAN 0.24 K/mm3 (0.00-0.00); METAMYELOCYTE PERCENT MAN 6 % (0-0); MONOCYTES ABSOLUTE MAN 0.24 K/mm3 (0.16-1.47); MONOCYTES PERCENT MAN 6 % (4-13); MYELOCYTE ABSOLUTE MAN 0.16 K/mm3 (0.00-0.00); MYELOCYTE PERCENT MAN 4 % (0-0); NEUTROPHILS ABSOLUTE MAN 2.40 K/mm3 (1.96-9.15); SEG NEUTROPHILS PERCENT MAN 37 % (41-73)
--- NOTE | 2024-12-17 06:49 | NUR ---
SHIFT SUMMARY PT SLEPT INTERMITTENTLY. CHANGED FROM AIRVO TO BIPAP AT 0215 D/T SATS MID-80s. TOLERATING BIPAP. DOES NOT TOLERATE BREAKS FROM BIPAP. ST, RATE 110-120s T/O NOC. LEVOPHED INFUSING BETWEEN 3-4MCG/MIN DURING SHIFT TO MAINTAIN MAP >65. NOW INFUSING AT 4MCG/MIN. LIJ CENTRAL LINE PATENT. TMAX 104.9. MEDICATED WITH TYLENOL 650MG PO X 2 DOSES. MEDICATED WITH ROXICODONE 5MG PO FOR C/O GENERALIZED PAIN. LEFT NEPHROSTOMY WITH TEA-COLORED URINE. RIGHT NEPHROSTOMY WITH DARK YELLOW URINE. PEACE PATENT- SCANT URINE OUTPUT. REPOSITIONED Q2H AND PRN. WILL REPORT TO ONCOMING RN WHEN AVAILABLE.
--- NOTE | 2024-12-17 08:01 | NUR ---
ASSUMED CARE OF PATIENT AT APPROXIMATELY 0700. REPORT RECEIVED FROM AJITH OLIVA. PT ASLEEP AT TIME OF BEDSIDE REPORT. CONTINUOUS CARDIAC MONITORING IN PLACE, BP STABLE c LEVOPHED INFUSING AT 4 MCG/MIN. ON BIPAP c SETTINGS OF 12/8 AND 60%, O2 SATURATIONS > 92%. BILATERAL NEPHROSTOMY TUBES IN PLACE DRAINING, TEMP PEACE PATENT. NO ACUTE NEEDS IDENTIFIED AT THIS TIME. SEE SHIFT ASSESSMENT FOR FULL DETAILS.
[2024-12-17] MEDS ORDERED: Protein Supplement 30 ML UD PT SCH (09:00)
[2024-12-17 09:38] LABS: Influenza A, PCR NEGATIVE (NEGATIVE); Influenza B, PCR NEGATIVE (NEGATIVE); Resp Syncytial Virus, PCR NEGATIVE (NEGATIVE); SARS-Cov-2 (COVID-19) PCR, MMC NEGATIVE (NEGATIVE)
[2024-12-17] MEDS ORDERED: Atropine Sulfate 1% Opth Soln 2ML BTL SL PRN (13:20)
[2024-12-17] MEDS ORDERED: Morphine Sulfate 20 MG/1ML 1 ML Oral Syringe SL PRN (13:20)
[2024-12-17] MEDS ORDERED: LORazepam 2 MG/ML 1ML Injection IV PRN (14:25)
[2024-12-17] MEDS ORDERED: Morphine Sulfate 10 MG/ML 1MLSYR IV PRN ×2 (15:20→15:45)
[2024-12-17] MEDS ORDERED: Heparin Sodium,Porcine 5,000 UNIT/0.5 ML SDV SC SCH (16:00)
[2024-12-17] MEDS ORDERED: Ketorolac Tromethamine 30mg Vial IV PRN (16:10)
--- NOTE | 2024-12-17 16:48 | NUR ---
SHIFT SUMMARY PT ON COMFORT CARE. TMAX 104.9, MEDICATED PER EMAR FOR FEVER AND AIR HUNGER c GOOD BENEFIT. PEACE REMAINS PATENT c SCANT URINE OUTPUT. L NEPHROSTOMY DRAINING TEA COLORED URINE, R NEPHROSTOMY DRAINING YELLOW URINE. TITRATING OFF OF AIRVO TO NC FOR COMFORT. FAMILY TO RETURN THIS EVENING. WILL CONTINUE TO MONITOR AND REPORT TO ONCOMING RN.
--- NOTE | 2024-12-17 17:50 | NUR ---
DECISION WAS MADE TO TRANSITION TO CC. ORDERS PLACED. DISCUSSED WITH PROVIDER AND BSRN.
--- NOTE | 2024-12-17 18:06 | NUR ---
PT TOD 1803. CONFIRMED VIA AUSCULTATION OF APICAL PULSES BY THIS RN AND DEAN CHIANG RN. FAMILY AT BEDSIDE AND SUPPORT GIVEN.
== END 2024-12-17 18:04 | DRG 698 ==
LOC: ER 10:57 → PCU 10:58 → ICUE 12-06 15:07 → PCU 12-06 15:07 → ICUE 12-07 00:48
PROVIDERS: Emergency Medicine; Internal Medicine; Internal Medicine Critical Care Medicine; ADMIT Student in an Organized Health Care Education/Training Program
PROC: 3E03329 Introduction of Other Anti-infective into Peripheral Vein, Percutaneous Approach (ICD-10-PCS; 2024-12-05)
PROC: 0T25X0Z Change Drainage Device in Kidney, External Approach (ICD-10-PCS; principal; 2024-12-06)
PROC: BT111ZZ Fluoroscopy of Right Kidney using Low Osmolar Contrast (ICD-10-PCS; 2024-12-06)
PROC: 3E033XZ Introduction of Vasopressor into Peripheral Vein, Percutaneous Approach (ICD-10-PCS; 2024-12-06)
PROC: 30233J1 Transfusion of Nonautologous Serum Albumin into Peripheral Vein, Percutaneous Approach (ICD-10-PCS; 2024-12-06)
PROC: 0BH17EZ Insertion of Endotracheal Airway into Trachea, Via Natural or Artificial Opening (ICD-10-PCS; 2024-12-07)
PROC: 5A1945Z Respiratory Ventilation, 24-96 Consecutive Hours (ICD-10-PCS; 2024-12-07)
PROC: 02HV33Z Insertion of Infusion Device into Superior Vena Cava, Percutaneous Approach (ICD-10-PCS; 2024-12-07)
PROC: 0T9B70Z Drainage of Bladder with Drainage Device, Via Natural or Artificial Opening (ICD-10-PCS; 2024-12-07)
PROC: 0DH67UZ Insertion of Feeding Device into Stomach, Via Natural or Artificial Opening (ICD-10-PCS; 2024-12-09)
PROC: 3E0G76Z Introduction of Nutritional Substance into Upper GI, Via Natural or Artificial Opening (ICD-10-PCS; 2024-12-09)
PROC: 30233N1 Transfusion of Nonautologous Red Blood Cells into Peripheral Vein, Percutaneous Approach (ICD-10-PCS; 2024-12-13)
PROC: 5A0935A Assistance with Respiratory Ventilation, Less than 24 Consecutive Hours, High Flow/Velocity Cannula (ICD-10-PCS; 2024-12-14)
PROC: 0T25X0Z Change Drainage Device in Kidney, External Approach (ICD-10-PCS; 2024-12-15)
PROC: BT121ZZ Fluoroscopy of Left Kidney using Low Osmolar Contrast (ICD-10-PCS; 2024-12-15)
PROC: 05JY3ZZ Inspection of Upper Vein, Percutaneous Approach (ICD-10-PCS; 2024-12-15)
PROC: 02HV33Z Insertion of Infusion Device into Superior Vena Cava, Percutaneous Approach (ICD-10-PCS; 2024-12-16)
PROC: 5A09357 Assistance with Respiratory Ventilation, Less than 24 Consecutive Hours, Continuous Positive Airway Pressure (ICD-10-PCS; 2024-12-17)
DX: T83.512A Infection and inflammatory reaction due to nephrostomy catheter, initial encounter (principal); A41.59 Other Gram-negative sepsis; R65.21 Severe sepsis with septic shock; J96.01 Acute respiratory failure with hypoxia; E43 Unspecified severe protein-calorie malnutrition; G93.41 Metabolic encephalopathy; E87.21 Acute metabolic acidosis; C78.7 Secondary malignant neoplasm of liver and intrahepatic bile duct; Z51.5 Encounter for palliative care; Z66 Do not resuscitate; N13.6 Pyonephrosis; E87.0 Hyperosmolality and hypernatremia; N17.9 Acute kidney failure, unspecified; C79.51 Secondary malignant neoplasm of bone; T83.022A Displacement of nephrostomy catheter, initial encounter; D63.0 Anemia in neoplastic disease; C67.9 Malignant neoplasm of bladder, unspecified; K74.60 Unspecified cirrhosis of liver; R62.59 Other lack of expected normal physiological development in childhood; Y73.2 Prosthetic and other implants, materials and accessory gastroenterology and urology devices associated with adverse incidents; L27.0 Generalized skin eruption due to drugs and medicaments taken internally; I51.7 Cardiomegaly; T50.905A Adverse effect of unspecified drugs, medicaments and biological substances, initial encounter; D69.59 Other secondary thrombocytopenia; B37.9 Candidiasis, unspecified; E83.51 Hypocalcemia; E87.6 Hypokalemia; Z88.1 Allergy status to other antibiotic agents; Z68.30 Body mass index [BMI] 30.0-30.9, adult; Z78.1 Physical restraint status
CPT/HCPCS: 31500; 31720; 36415; 36430; 36556; 50432; 51702; 71045; 71250; 71260; 74150; 74177; 76937; 80048; 80053; 80069; 80202; 81001; 82140; 82272; 82330; 82550; 82803; 82947; 83605; 83615; 83690; 83735; 83880; 83935; 84100; 84300; 85014; 85018; 85025; 85027; 85610; 86850; 86900; 86901; 86923; 87040; 87070; 87077; 87086; 87106; 87186; 87205; 87507; 87637; 92610; 93005; 93010; 93306; 93971; 94002; 94003; 94660; 94760; 94762; 96361; 96374-59; 96375; 97162; 97530; 99152; 99285-25; A9270; C1729; C1751; C1769; C1894; G0378; J0612; J0696; J0780; J0878; J1200; J1644; J1720; J1885; J1938; J2060; J2185; J2248; J2250; J2270; J2371; J2405; J2470; J2704; J2919; J3010; J3373; J3411; J3480; J7030; J7040; J7050; J7060; J7070; P9016; P9047; Q9967